=== PATIENT | male | born 1945 | race Caucasian/White ===

== ENCOUNTER 2018-08-24 09:06 | Day surgery (SDC) | payer MEDICARE ==
[2018-08-21 10:20] VITALS: BP 146/72
[2018-08-21 10:27] LABS: BASOPHILS % (AUTO) 0.8 % (0.0-5.0); EOSINOPHILS % (AUTO) 2.9 % (0.0-8.0); HEMATOCRIT 47.8 % (42-54); LYMPHOCYTES % (AUTO) 16.7 % (21.0-51.0); MEAN CORPUSCULAR HEMOGLOBIN 29.8 pg (27.0-33.0); MEAN CORPUSCULAR HGB CONC 33.5 g/dL (32.0-36.0); MEAN CORPUSCULAR VOLUME 89.1 fL (79-99); MONOCYTES % (AUTO) 7.6 % (3.0-13.0); NUCLEATED RED BLOOD CELLS 0.1 % (0.0-0.19); PLATELET COUNT (AUTO) 157 K/uL (130-400); RED BLOOD CELL COUNT(AUTO) 5.36 MIL/uL (4.50-6.20); RED CELL DISTRIBUTION WIDTH 14.6 % (11.0-15.5)
[2018-08-21 10:27] LABS: APPEARANCE,URINE Clear (CLEAR); BILIRUBIN,URINE Negative (NEGATIVE); COLOR,URINE Yellow (YELLOW); GLUCOSE, URINE (UA) Negative (NEGATIVE); KETONES,URINE Negative (NEGATIVE); LEUKOCYTE ESTERASE ,URINE Trace (NEGATIVE); NITRATE,URINE Negative (NEGATIVE); OCCULT BLOOD,URINE Negative (NEGATIVE); PROTEIN,URINE Negative (NEGATIVE); UROBILINOGEN,URINE 0.2 mg/dL (0.2-1.0)
[2018-08-21 10:40] LABS: BACTERIA,URINE None Seen /HPF (None Seen); RBC,URINE None Seen /HPF (0-1); SQUAMOUS EPITHELIAL CELL,UR Rare /HPF (0-2); WBC,URINE 0-1 /HPF (0-1)
[2018-08-21 10:52] LABS: INR 0.98 (0.85-1.15); PROTHROMBIN TIME 10.3 SEC (9.6-11.6)
[2018-08-21 10:58] LABS: CREATININE 0.9 mg/dL (0.5-1.5)
--- NOTE | 2018-08-21 12:13 | NUR ---
NOTE DR GOODWIN HAS REVIEWED EKG, NO FURTHER ORDERS GIVEN, OK TO PROCEED.
--- NOTE | 2018-08-23 10:00 | NUR ---
ABNORMAL LABS REPORTED AND FAXED ABNORMAL CHEST XRAY TO JOHAN FROM DR. MACE OFFICE. PER JOHAN RENAE WILL CALL BACK WITH ORDERS. PENDING CALL BACK FROM DR. RENAE.
--- NOTE | 2018-08-23 16:27 | NUR ---
ABNORMAL CHEST XRAY REPORTED ABNORMAL CHEST XRAY TO JOHAN FROM DR. MACE OFFICE. PENDING CALL BACK.
--- NOTE | 2018-08-23 16:31 | NUR ---
CHEST XRAY REPORTED CHEST XRAY TO DR. GOODWIN, ANESTHESIA SINCE NO CALL BACK FROM DR. RENAE. NO NEW ORDERS. OK TO PROCEED WITH PROCEDURE.
[2018-08-24] VITALS (18 sets, daily range): BP systolic 108–184; BP diastolic 61–110
[~2018-08-24] VITALS: Ht 175.3 cm; Wt 109.0 kg
[2018-08-24] MEDS: CEFTRIAXONE SODIUM 1 GM IVP SCH ×2 (05:00→11:15)
[~2018-08-24 09:06] MED LIST: AEC81 PO; GENTAMICIN 80 MG/NS 100 ML PB 100 ML IV SCH; HYDR-2132 PO; LISI-613 PO; METO100T14 PO; PRAV40TA3 PO; RIVA10TA PO; [UNRECOGNIZED DRUG - OTHER] PO
--- NOTE | 2018-08-24 09:32 | NUR ---
CONSULT: DR. GOODWIN NOTIFIED OF NPO STATUES 08/24/18 DRINKING 8 OUNCES OF WATER WITH MEDICATIONS. OK TO PROCEED WITH SURGERY.
[2018-08-24] MEDS ORDERED: LACTATED RINGERS 1000ML 1,000 ML IV ONE (09:38)
[2018-08-24] MEDS ORDERED: LACT1CAP78 PO (09:56)
[2018-08-24] MEDS ORDERED: CHRO1TAB7 PO (09:56)
[2018-08-24] MEDS ORDERED: TAMS0.4C32 PO (09:56)
--- NOTE | 2018-08-24 09:58 | NUR ---
VALUABLES: CLOTHING, MEDICATIONS, GLASSES, CELL PHONE WITH PHONE HEAD OF MUSIC AND WALLET GIVEN TO SPOUSE.
[2018-08-24] MEDS ORDERED: MIDAZOLAM HCL 1 MG/ML 2ML VIAL ONE (11:21)
[2018-08-24] MEDS ORDERED: PROPOFOL 10 MG/ML 20ML VIAL IV ONE ×2 (11:22→12:38)
[2018-08-24] MEDS ORDERED: LIDOCAINE PF 2% 5ML ABBOJECT ONE (11:22)
[2018-08-24] MEDS ORDERED: FENTANYL CITRATE PF 50 MCG/1 ML 2ML VIAL ONE (11:44)
[2018-08-24] MEDS ORDERED: GLYCOPYRROLATE 1 MG/5 ML SYRINGE ONE (12:19)
[2018-08-24] MEDS ORDERED: METHYLENE BLUE 10 MG/ML AMP ONE (12:32)
[2018-08-24] MEDS ORDERED: NEOSTIGMINE 5MG/5ML SYR IV ONE (12:50)
[2018-08-24] MEDS ORDERED: MORPHINE SULFATE 4 MG/1ML SYG ONE (13:27)
[2018-08-24] MEDS ORDERED: HYDRALAZINE HCL 20 MG/ML VIAL ONE (13:40)
[2018-08-24] MEDS ORDERED: OPIUM/BELLADONNA ALKALOIDS 1 EACH SUPP.RECT RC ONE (13:44)
--- NOTE | 2018-08-24 14:15 | NUR ---
IV WITH PINKISH AND SLIGHT SWELLING ,DISCONTINUED,WILL CONTINUE TO MONITOR ,NO COMPLAINS OF PAIN
--- NOTE | 2018-08-24 15:15 | NUR ---
INSTRUCTED ON [facility] CARE AND CHANGING TO LEG BAG,RETURNS DEMONSTRATION,, PER SPOUSE ,VERBALIZE UNDERSTANDING,,,,SUPPLIES GIVEN Addendum: 08/24/18 at 1713 by MARIA DE JESUS HERCULES LVN LVN If no urine output with in 6 hours ,blood clots ,report to ER OR CALL ,,,verbalize understanding
--- NOTE | 2018-08-24 15:15 | NUR ---
IRRIGATION WAS CLAMPED,700 ML OUTPUT FROM [facility]
--- NOTE | 2018-08-24 15:30 | NUR ---
NO PINK TO IV SITE,NO SWELLING
== END 2018-08-24 15:50 | disposition home or self-care (01) ==
LOC: DAH 09:06
PROVIDERS: ATTEND Urology
DX: N40.1 Benign prostatic hyperplasia with lower urinary tract symptoms (principal); N39.43 Post-void dribbling; I10 Essential (primary) hypertension; Z86.73 Personal history of transient ischemic attack (TIA), and cerebral infarction without residual deficits; E66.9 Obesity, unspecified; E78.5 Hyperlipidemia, unspecified; Z85.46 Personal history of malignant neoplasm of prostate; K21.9 Gastro-esophageal reflux disease without esophagitis; Z79.899 Other long term (current) drug therapy
CPT/HCPCS: 36415; 52648; 71045; 80048; 81001; 85025; 85610; 87088; 93005; 96365; A4218; A4354; A4358; A4600; C1758; C1769; J0360; J0696; J1580; J2001; J2250; J2270; J2704 ×2; J2710; J3010; J3490; J7030; J7120; Q9968

== ENCOUNTER 2019-06-07 01:08 | Day surgery (SDC) | payer MEDICARE ==
[2019-06-04 14:55] LABS: APPEARANCE,URINE Clear (CLEAR); BILIRUBIN,URINE Negative (NEGATIVE); COLOR,URINE Yellow (YELLOW); GLUCOSE, URINE (UA) Negative (NEGATIVE); KETONES,URINE Negative (NEGATIVE); LEUKOCYTE ESTERASE ,URINE Negative (NEGATIVE); NITRATE,URINE Negative (NEGATIVE); OCCULT BLOOD,URINE Small (NEGATIVE); PROTEIN,URINE Negative (NEGATIVE); UROBILINOGEN,URINE 0.2 mg/dL (0.2-1.0)
[2019-06-04 14:56] LABS: BASOPHILS % (AUTO) 0.6 % (0.0-5.0); EOSINOPHILS % (AUTO) 1.8 % (0.0-8.0); HEMATOCRIT 44.4 % (42-54); LYMPHOCYTES % (AUTO) 14.3 % (21.0-51.0); MEAN CORPUSCULAR HEMOGLOBIN 31.2 pg (27.0-33.0); MEAN CORPUSCULAR HGB CONC 33.6 g/dL (32.0-36.0); MEAN CORPUSCULAR VOLUME 92.8 fL (79-99); MONOCYTES % (AUTO) 5.1 % (3.0-13.0); NEUTROPHILS % (AUTO) 78.2 % (40.0-77.0); PLATELET COUNT (AUTO) 203 K/uL (130-400); RED BLOOD CELL COUNT(AUTO) 4.78 MIL/uL (4.50-6.20); RED CELL DISTRIBUTION WIDTH 13.8 % (11.0-15.5); WHITE BLOOD COUNT (AUTO) 8.7 K/uL (4.8-10.8)
[2019-06-04 14:57] VITALS: BP 146/66
[2019-06-04 15:03] LABS: BACTERIA,URINE Few /HPF (None Seen); MUCUS,URINE Moderate LPF (None Seen)
[2019-06-04 15:05] LABS: CREATININE 1.4 mg/dL (0.5-1.5)
[2019-06-04 15:07] LABS: INR 0.97 (0.85-1.15); PARTIAL THROMBOPLASTIN TIME 25.8 SEC (26.3-35.5); PROTHROMBIN TIME 10.2 SEC (9.6-11.6)
--- NOTE | 2019-06-04 15:18 | NUR ---
EKG INFORMED DR. GOODWIN OF ABNORMAL EKG. NO ORDERS RECEIVED. PROCEED WITH PLANNED PROCEDURE.
[~2019-06-07] VITALS: Ht 177.8 cm; Wt 104.3 kg
[2019-06-07] VITALS (18 sets, daily range): BP systolic 124–191; BP diastolic 69–107
[~2019-06-07 01:08] MED LIST changes: -AEC81 PO; +CEFTRIAXONE SODIUM 1 GM IVP SCH; -HYDR-2132 PO; -RIVA10TA PO; -[UNRECOGNIZED DRUG - OTHER] PO
[2019-06-07] MEDS ORDERED: LACTATED RINGERS 1000ML 1,000 ML IV ONE (13:43)
[2019-06-07] MEDS ORDERED: GENTAMICIN 80 MG/NS 100 ML PB 100 ML IV ONE (13:43)
[2019-06-07] MEDS ORDERED: MIDAZOLAM HCL 1 MG/ML 2ML VIAL ONE (13:57)
[2019-06-07] MEDS ORDERED: FENTANYL CITRATE PF 50 MCG/1 ML 5ML AMP IV ONE (13:57)
[2019-06-07] MEDS ORDERED: PROPOFOL 10 MG/ML 20ML VIAL IV ONE (13:57)
[2019-06-07] MEDS ORDERED: LIDOCAINE PF 2% 5ML ABBOJECT ONE (13:57)
[2019-06-07] MEDS: CEFTRIAXONE SODIUM 1 GM ONE ×2 (14:00→14:35)
[2019-06-07] MEDS ORDERED: EPHEDRINE SULFATE 50 MG/ML AMPULE ONE (14:44)
[2019-06-07] MEDS ORDERED: DEXAMETHASONE SOD PHOSPHATE 10MG/ML 1ML VIAL ONE (14:47)
[2019-06-07] MEDS ORDERED: ONDANSETRON HCL 4 MG/2 ML VIAL ONE (14:47)
[2019-06-07] MEDS ORDERED: METHYLENE BLUE 5 MG/ML AMP ONE (15:22)
[2019-06-07] MEDS ORDERED: HYDRALAZINE HCL 20 MG/ML VIAL ONE (16:26)
--- NOTE | 2019-06-07 18:05 | NUR ---
PT. LEFT VIA WHEELCHAIR IN PVT CAR, SCRIPT GIVEN TO WITH D/C INSTRUCTIONS. PER PT. AND NO [facility]ION LEG BAG APPLIED. MARION BAG IS PATENT, SECURE AND INTACT WITH PINK TINGE TO URINE. PT. LEFT WITHOUT COMPLICATION AND STABLE
== END 2019-06-07 18:05 | disposition home or self-care (01) ==
LOC: DAH 01:08
PROVIDERS: ATTEND Urology
DX: N40.1 Benign prostatic hyperplasia with lower urinary tract symptoms (principal); C61 Malignant neoplasm of prostate; N32.0 Bladder-neck obstruction; R31.0 Gross hematuria; I10 Essential (primary) hypertension; E78.5 Hyperlipidemia, unspecified; M19.90 Unspecified osteoarthritis, unspecified site; E66.01 Morbid (severe) obesity due to excess calories; Z86.73 Personal history of transient ischemic attack (TIA), and cerebral infarction without residual deficits; Z96.652 Presence of left artificial knee joint; Z98.890 Other specified postprocedural states
CPT/HCPCS: 36415; 52630; 71045; 80048; 81001; 85025; 85610; 85730; 87088; 88305; 93005; 96365; A4215 ×2; A4221; A4222 ×2; A4223 ×2; A4344; A4358; A4452; A4600 ×2; A4663 ×2; A6260; C1758; J0360; J0696; J1100; J1580; J2001; J2250; J2405; J2704; J3010; J3490; J7120 ×2; Q9968

== ENCOUNTER → 2019-06-25 | Outpatient (CLI) | payer MEDICARE ==
[~2019-06-25] MED LIST changes: -CEFTRIAXONE SODIUM 1 GM IVP SCH; -GENTAMICIN 80 MG/NS 100 ML PB 100 ML IV SCH; +IOHEXOL 350 MG/ML 100ML INFUS..BTL IV ONE
== END | disposition home or self-care (01) ==
LOC: RAH 08:07
PROVIDERS: ATTEND Urology
DX: C61 Malignant neoplasm of prostate (principal); N28.1 Cyst of kidney, acquired; K57.30 Diverticulosis of large intestine without perforation or abscess without bleeding
CPT/HCPCS: 74177; Q9967

== ENCOUNTER → 2019-06-29 | Outpatient (CLI) | payer MEDICARE ==
[~2019-06-29] MED LIST changes: -IOHEXOL 350 MG/ML 100ML INFUS..BTL IV ONE
== END | disposition home or self-care (01) ==
LOC: RAH 11:10
PROVIDERS: ATTEND Urology
DX: C61 Malignant neoplasm of prostate (principal); M19.90 Unspecified osteoarthritis, unspecified site
CPT/HCPCS: 78306; A9503

== ENCOUNTER → 2020-09-10 | Outpatient (CLI) | payer MEDICARE ==
[~2020-09-10] MED LIST changes: +IOHEXOL 350 MG/ML 100ML INFUS..BTL IV ONE; -LISI-613 PO; +LISI20TA24 PO
== END | disposition home or self-care (01) ==
LOC: RAH 08:20
PROVIDERS: ATTEND Urology
DX: N28.1 Cyst of kidney, acquired (principal); R31.0 Gross hematuria; Z90.79 Acquired absence of other genital organ(s)
CPT/HCPCS: 74178; Q9967

== ENCOUNTER 2020-09-24 04:36 | Inpatient (IN) | payer MEDICARE ==
[2020-09-24] VITALS (15 sets, daily range): BP systolic 104–141; BP diastolic 50–78
[~2020-09-24] VITALS: Ht 175.3 cm; Wt 101.6 kg
[~2020-09-24 04:36] MED LIST changes: -IOHEXOL 350 MG/ML 100ML INFUS..BTL IV ONE
[2020-09-24 05:08] LABS: BASOPHILS % (AUTO) 0.1 % (0.0-5.0); EOSINOPHILS % (AUTO) 0.5 % (0.0-8.0); HEMATOCRIT 45.6 % (42-54); LYMPHOCYTES % (AUTO) 4.7 % (21.0-51.0); MEAN CORPUSCULAR HEMOGLOBIN 29.7 pg (27.0-33.0); MEAN CORPUSCULAR HGB CONC 32.7 g/dL (32.0-36.0); NEUTROPHILS % (AUTO) 90.2 % (40.0-77.0); PLATELET COUNT (AUTO) 210 K/uL (130-400); RED BLOOD CELL COUNT(AUTO) 5.01 MIL/uL (4.50-6.20); RED CELL DISTRIBUTION WIDTH 13.5 % (11.0-15.5)
[2020-09-24 05:20] LABS: INR 0.97 (0.85-1.15); POTASSIUM 3.9 mmol/L (3.5-5.1); PROTHROMBIN TIME 10.6 SEC (9.6-11.6)
[2020-09-24 05:21] LABS: PARTIAL THROMBOPLASTIN TIME 24.2 SEC (26.3-35.5)
[2020-09-24 05:25] LABS: ALBUMIN 4.4 g/dL (3.5-5.0); BILIRUBIN,TOTAL 0.7 mg/dL (0.2-1.0); TOTAL PROTEIN, SERUM 7.9 g/dL (6.0-8.3)
[2020-09-24 05:49] LABS: APPEARANCE,URINE Clear (CLEAR); BILIRUBIN,URINE Negative (NEGATIVE); COLOR,URINE Yellow (YELLOW); GLUCOSE, URINE (UA) Negative (NEGATIVE); KETONES,URINE Negative (NEGATIVE); LEUKOCYTE ESTERASE ,URINE Trace (NEGATIVE); NITRATE,URINE Negative (NEGATIVE); OCCULT BLOOD,URINE Nonhemolyzed Trace (NEGATIVE); PROTEIN,URINE Trace mg/dL (NEGATIVE)
[2020-09-24 05:54] LABS: BACTERIA,URINE None Seen /HPF (None Seen); MUCUS,URINE Few LPF (None Seen); RBC,URINE 0-1 /HPF (0-1); SQUAMOUS EPITHELIAL CELL,UR Rare /HPF (0-2)
[2020-09-24] MEDS ORDERED: ASPIRIN 325 MG TABLET ONE (06:06)
[2020-09-24] MEDS ORDERED: ONDANSETRON 4MG INJ ONE ×2 (06:20→13:53)
[2020-09-24] MEDS ORDERED: MORPHINE 2 MG SYG ONE (06:20)
[2020-09-24] MEDS: DEXTROSE 5 % AND 0.9 % NACL 1,000 ML IV SCH ×2 (08:30→23:54)
[2020-09-24] MEDS ORDERED: MORPHINE 2 MG SYG IM PRN (08:30)
[2020-09-24 09:15] LABS: HEMOGLOBIN A1C 5.4 % (4.0-6.0)
[2020-09-24 09:33] LABS: THYROID STIMULATING HORMONE 0.37 uIU/mL (0.36-3.74)
[2020-09-24] MEDS ORDERED: METOPROLOL TARTRATE 50 MG TAB PO SCH ×2 (13:15→21:00)
[2020-09-24] MEDS: CEFTRIAXONE 1G VIAL IVP SCH (13:21)
[2020-09-24] MEDS ORDERED: LACTATED RINGERS 1000ML 1,000 ML IV ONE (13:28)
[2020-09-24] MEDS ORDERED: LIDOCAINE PF 100MG/5ML (2%) SYRINGE 5ML ONE (13:53)
[2020-09-24] MEDS ORDERED: DEXAMETHASONE SOD PHOSPHATE 10MG/ML 1ML VIAL ONE (13:53)
[2020-09-24] MEDS ORDERED: FENTANYL CITRATE PF 50 MCG/1 ML 2ML VIAL ONE (13:55)
[2020-09-24] MEDS ORDERED: ROCURONIUM 10MG/1ML SYR 10 MG/ML ML ONE (13:55)
[2020-09-24] MEDS ORDERED: MIDAZOLAM HCL 1 MG/ML 2ML VIAL ONE (13:55)
[2020-09-24] MEDS ORDERED: ROPIVACAINE 0.5% 5MG/ML 30ML IJ ONE (14:00)
[2020-09-24] MEDS ORDERED: NITROGLYCERIN 50MG/D5W 250ML 1 BOT ONE (14:00)
[2020-09-24] MEDS ORDERED: CEFAZOLIN SODIUM 1 GM VIAL ONE (14:10)
[2020-09-24] MEDS ORDERED: PHENYLEPHRINE HCL 10 MG/ML 1ML VIAL IV ONE ×2 (14:40→16:25)
[2020-09-24] MEDS ORDERED: NOREPINEPHRINE BITARTRATE 1 MG/1 ML ML IV ONE (14:40)
[2020-09-24] MEDS: CEFAZOLIN SODIUM 1 GM VIAL IVP SCH ×2 (14:50→15:30)
[2020-09-24 15:09] LABS: ABG BASE EXCESS 0.6 mmol/L (-2.0-3.0); ABG HCO3 26.4 mmol/L (21.0-28.0); ABG OXYGEN SATURATION 98.9 % (95.0-99.0); ABG PCO2 47 mmHg (35-48)
[2020-09-24] MEDS ORDERED: GLYCOPYRROLATE 1 MG/5 ML SYRINGE ONE (15:14)
[2020-09-24] MEDS ORDERED: NEOSTIGMINE 5MG/5ML SYR IV ONE (15:15)
[2020-09-24] MEDS ORDERED: LIDOCAINE HCL-MPF 1% 2ML VIAL IV PRN (15:30)
[2020-09-24] MEDS ORDERED: POTASSIUM CHLORIDE 10% ELIXIR 20 MEQ/15 ML UDCUP PO PRN (15:30)
[2020-09-24] MEDS ORDERED: DIPHENHYDRAMINE HCL 25 MG CAPSULE PO PRN (15:30)
[2020-09-24] MEDS ORDERED: TEMAZEPAM 15 MG CAPSULE PO PRN (15:30)
[2020-09-24] MEDS ORDERED: DiphenhydrAMINE HCL 50 MG/ML VIAL IVP PRN (15:30)
[2020-09-24] MEDS ORDERED: TRAMADOL HCL 50 MG TABLET PO PRN (15:30)
[2020-09-24] MEDS ORDERED: FERROUS FUMARATE 324 MG TABLET PO PRN (15:30)
[2020-09-24] MEDS ORDERED: CALCIUM CARB 500MG PO PRN (15:30)
[2020-09-24] MEDS ORDERED: OXYCODONE HCL 5 MG TAB PO PRN ×2 (15:30)
[2020-09-24] MEDS ORDERED: KCL 20 MEQ ERTAB PO PRN (15:30)
[2020-09-24] MEDS ORDERED: ONDANSETRON 4MG INJ IVP PRN (15:30)
[2020-09-24] MEDS: ACETAMINOPHEN 500 MG TABLET PO SCH ×2 (15:30→23:30)
[2020-09-24] MEDS ORDERED: KETOROLAC 15MG/ML VIAL (15MG/ML) IV PRN (15:30)
[2020-09-24] MEDS ORDERED: SODIUM BICARB 8.4% 50ML SYRINGE IVP ONE (16:25)
[2020-09-24] MEDS ORDERED: MAGNESIUM SULFATE 1 GM/2 ML VIAL IM ONE (16:25)
[2020-09-24] MEDS ORDERED: HEPARIN 10,000 UNIT/10ML (1,000 UNIT/ML) VIAL IV ONE (16:25)
[2020-09-24] MEDS ORDERED: AMINOCAPROIC ACID 5,000MG VIAL IV ONE (16:25)
[2020-09-24] MEDS ORDERED: ALBUMIN (HUMAN) 25% 50 ML IV ONE (16:25)
[2020-09-24] MEDS ORDERED: MANNITOL 25% 50ML VIAL IV ONE (16:25)
[2020-09-24] MEDS ORDERED: CACL 1GM SYG IVP ONE (16:25)
[2020-09-24] MEDS: 0.9%NACL 1000ML 1,000 ML IV SCH (17:14)
[2020-09-24] MEDS ORDERED: KETOROLAC 30MG VIAL (30MG/ML) IV PRN (18:15)
[2020-09-24] MEDS ORDERED: CALC-1125 PO (18:51)
[2020-09-24] MEDS ORDERED: ASCO500T20 PO (18:51)
[2020-09-24] MEDS ORDERED: FAMO40TA75 PO (18:51)
[2020-09-24] MEDS ORDERED: OMEP40CA21 PO (18:51)
[2020-09-24] MEDS ORDERED: METO100T14 PO (18:51)
[2020-09-24] MEDS ORDERED: BICALUTAMIDE PO (18:51)
[2020-09-24] MEDS ORDERED: MV-M1TAB20 PO (18:51)
[2020-09-24] MEDS ORDERED: ECHI400C18 PO (18:51)
[2020-09-24] MEDS ORDERED: PREGABALIN 25 MG CAP PO SCH (21:00)
[2020-09-24] MEDS ORDERED: ASPIRIN 81MG CHEW TAB PO SCH (21:00)
[2020-09-24] MEDS: FAMOTIDINE 20MG TAB PO SCH (21:54)
[2020-09-24] MEDS: ATORVASTATIN 40 MG TABLET PO SCH (21:55)
[2020-09-24] MEDS ORDERED: CEFAZOLIN SODIUM 1 GM VIAL IVP SCH (22:10)
[2020-09-24] MEDS: MORPHINE 2 MG SYG IVP PRN (23:33)
[2020-09-25] VITALS (21 sets, daily range): BP systolic 100–141; BP diastolic 45–94
[2020-09-25] MEDS: 0.9%NACL 1000ML 1,000 ML IV SCH ×2 (01:30→11:30)
[2020-09-25] MEDS ORDERED: MAGNESIUM 2GM PREMIX 50ML 50 ML IV ONE (02:51)
[2020-09-25 03:29] LABS: HEMATOCRIT 38.3 % (42-54); MEAN CORPUSCULAR HGB CONC 33.7 g/dL (32.0-36.0); MEAN CORPUSCULAR VOLUME 89.1 fL (79-99); RED BLOOD CELL COUNT(AUTO) 4.3 MIL/uL (4.50-6.20); RED CELL DISTRIBUTION WIDTH 13.6 % (11.0-15.5); WHITE BLOOD COUNT (AUTO) 10.6 K/uL (4.8-10.8)
[2020-09-25 03:54] LABS: CREATININE 1.1 mg/dL (0.5-1.5); POTASSIUM 3.9 mmol/L (3.5-5.1)
[2020-09-25] MEDS: MORPHINE 2 MG SYG IVP PRN (04:45)
[2020-09-25] MEDS ORDERED: CEFAZOLIN SODIUM 1 GM VIAL ONE (05:58)
[2020-09-25] MEDS ORDERED: NITROGLYCERIN 0.4 MG SL TAB SL PRN (07:30)
[2020-09-25] MEDS: ACETAMINOPHEN 500 MG TABLET PO SCH ×3 (07:30→23:26)
[2020-09-25] MEDS ORDERED: METOPROLOL TARTRATE 1 MG/ML 5ML VIAL IV ONE ×3 (08:29→10:42)
[2020-09-25] MEDS ORDERED: METOPROLOL TARTRATE 1 MG/ML 5ML VIAL IV SCH (08:30)
[2020-09-25] MEDS: FAMOTIDINE 20MG TAB PO SCH ×2 (08:32→21:34)
[2020-09-25] MEDS ORDERED: CLOPIDOGREL 300MG TAB PO SCH (09:00)
[2020-09-25] MEDS ORDERED: METOPROLOL TARTRATE 50 MG TAB PO SCH (09:00)
[2020-09-25] MEDS ORDERED: LISINOPRIL 10 MG TABLET PO SCH (09:00)
[2020-09-25] MEDS: BICALUTAMIDE 50 MG PO SCH (09:00)
[2020-09-25] MEDS: TAMSULOSIN HCL 0.4 MG CAP.ER.24H PO SCH (09:00)
[2020-09-25] MEDS: LISINOPRIL 20 MG TABLET PO SCH (09:00)
[2020-09-25] MEDS: CALCIUM CARB 500MG CHEW TAB PO SCH ×2 (09:00→21:35)
[2020-09-25] MEDS: POLYETHYLENE GLYCOL 3350 17 GM POWD.PACK PO SCH (09:00)
[2020-09-25] MEDS ORDERED: ASPIRIN 81MG CHEW TAB PO SCH (09:00)
[2020-09-25] MEDS: ASCORBIC ACID 500 MG TAB PO SCH ×2 (09:00→21:35)
[2020-09-25] MEDS ORDERED: BIVALIRUDIN 250 MG/VIAL IV ONE (09:38)
[2020-09-25] MEDS ORDERED: IOHEXOL 350 MG/ML 100ML INFUS..BTL IV ONE (09:38)
[2020-09-25] MEDS ORDERED: NITROGLYCERIN 2 MG VIAL IV ONE (09:38)
[2020-09-25] MEDS ORDERED: IOHEXOL-350 50ML VIAL IV ONE (09:38)
[2020-09-25] MEDS ORDERED: LIDOCAINE HCL 400MG/20ML VIAL ONE (09:39)
[2020-09-25] MEDS: ASPIRIN 81MG CHEW TAB PO SCH (09:40)
[2020-09-25] MEDS: CEFTRIAXONE 1G VIAL IVP SCH (09:40)
[2020-09-25] MEDS ORDERED: MIDAZOLAM HCL 1 MG/ML 2ML VIAL ONE (10:04)
[2020-09-25] MEDS ORDERED: FENTANYL CITRATE PF 50 MCG/1 ML 2ML VIAL ONE (10:04)
[2020-09-25] MEDS ORDERED: HEPARIN 10,000 UNIT/10ML (1,000 UNIT/ML) VIAL ONE (10:38)
[2020-09-25] MEDS ORDERED: HEPARIN 25,000 UNITS/250ML D5W 250 ML IV ONE (11:37)
[2020-09-25] MEDS ORDERED: HEPARIN 25,000 UNITS/250ML D5W 250 ML IV SCH (11:45)
[2020-09-25] MEDS: PSYLLIUM SEED 1 EACH PACKET PO SCH (12:00)
[2020-09-25] MEDS: DEXTROSE 5 % AND 0.9 % NACL 1,000 ML IV SCH (13:51)
[2020-09-25 15:53] LABS: HEMATOCRIT 39.1 % (42-54); MEAN CORPUSCULAR HEMOGLOBIN 29.6 pg (27.0-33.0); MEAN CORPUSCULAR VOLUME 89.7 fL (79-99); RED BLOOD CELL COUNT(AUTO) 4.36 MIL/uL (4.50-6.20); RED CELL DISTRIBUTION WIDTH 13.6 % (11.0-15.5); WHITE BLOOD COUNT (AUTO) 11.9 K/uL (4.8-10.8)
[2020-09-25 16:08] LABS: ALBUMIN 3.3 g/dL (3.5-5.0); CREATININE 1.1 mg/dL (0.5-1.5); POTASSIUM 4.3 mmol/L (3.5-5.1); TOTAL PROTEIN, SERUM 6.6 g/dL (6.0-8.3)
[2020-09-25 16:42] LABS: INR 1.1 (0.85-1.15); PROTHROMBIN TIME 11.9 SEC (9.6-11.6)
[2020-09-25 16:59] LABS: PARTIAL THROMBOPLASTIN TIME 120.6 SEC (26.3-35.5)
[2020-09-25] MEDS ORDERED: NON-FORMULARY MEDICATION 1 EACH (Pravastatin Sodium 80 MG) PO SCH (21:00)
[2020-09-25] MEDS: ATORVASTATIN 40 MG TABLET PO SCH (21:35)
[2020-09-25] MEDS: METOPROLOL TARTRATE 50 MG TAB PO SCH (21:35)
[2020-09-25 23:22] LABS: INR 1.06 (0.85-1.15); PROTHROMBIN TIME 11.5 SEC (9.6-11.6)
[2020-09-25 23:24] LABS: PARTIAL THROMBOPLASTIN TIME 65.1 SEC (26.3-35.5)
[2020-09-26] VITALS (30 sets, daily range): BP systolic 91–164; BP diastolic 41–99
[2020-09-26] MEDS: ACETAMINOPHEN 500 MG TABLET PO SCH (04:45)
[2020-09-26] MEDS: DEXTROSE 5 % AND 0.9 % NACL 1,000 ML IV SCH (04:46)
[2020-09-26 05:30] LABS: BASOPHILS % (AUTO) 0.4 % (0.0-5.0); EOSINOPHILS % (AUTO) 3.9 % (0.0-8.0); HEMATOCRIT 35.7 % (42-54); MEAN CORPUSCULAR HEMOGLOBIN 30.1 pg (27.0-33.0); MEAN CORPUSCULAR HGB CONC 33.3 g/dL (32.0-36.0); MEAN CORPUSCULAR VOLUME 90.2 fL (79-99); MONOCYTES % (AUTO) 7.7 % (3.0-13.0); NEUTROPHILS % (AUTO) 81.7 % (40.0-77.0); PLATELET COUNT (AUTO) 158 K/uL (130-400); RED BLOOD CELL COUNT(AUTO) 3.96 MIL/uL (4.50-6.20); RED CELL DISTRIBUTION WIDTH 13.7 % (11.0-15.5)
[2020-09-26 05:46] LABS: INR 1.08 (0.85-1.15); PROTHROMBIN TIME 11.7 SEC (9.6-11.6)
[2020-09-26 05:48] LABS: PARTIAL THROMBOPLASTIN TIME 58.9 SEC (26.3-35.5)
[2020-09-26 05:49] LABS: ALBUMIN 3.1 g/dL (3.5-5.0); BILIRUBIN,TOTAL 1.1 mg/dL (0.2-1.0); POTASSIUM 3.8 mmol/L (3.5-5.1); TOTAL PROTEIN, SERUM 6.4 g/dL (6.0-8.3)
[2020-09-26] MEDS ORDERED: NITROGLYCERIN 50MG/D5W 250ML 1 BOT ONE (08:05)
[2020-09-26] MEDS ORDERED: SODIUM BICARB 50MEQ 50ML VIAL 150 ML ONE ×2 (08:06→11:06)
[2020-09-26] MEDS ORDERED: ESMOLOL HCL 10 MG/ML 10 ML VIAL ONE (08:06)
[2020-09-26] MEDS ORDERED: EPINEPHRINE PF 1MG AMP ONE (08:06)
[2020-09-26] MEDS ORDERED: AMINOCAPROIC ACID 5,000MG VIAL ONE (08:06)
[2020-09-26] MEDS ORDERED: LIDOCAINE PF 100MG/5ML (2%) SYRINGE 5ML ONE (08:06)
[2020-09-26] MEDS ORDERED: HEPARIN 10,000 UNIT/10ML (1,000 UNIT/ML) VIAL ONE ×2 (08:06→09:55)
[2020-09-26] MEDS ORDERED: NOREPINEPHRINE BITARTRATE 1 MG/1 ML ML IV ONE (08:06)
[2020-09-26] MEDS ORDERED: PROPOFOL 10 MG/ML 20ML VIAL IV ONE (08:06)
[2020-09-26] MEDS ORDERED: PROTAMINE SULFATE 10 MG/ML 25ML VIAL IV ONE (08:06)
[2020-09-26] MEDS ORDERED: ROCURONIUM 10MG/1ML SYR 10 MG/ML ML ONE ×2 (08:07→10:57)
[2020-09-26] MEDS ORDERED: MIDAZOLAM HCL 1 MG/ML 2ML VIAL ONE (08:07)
[2020-09-26] MEDS ORDERED: FENTANYL CITRATE PF 50 MCG/1 ML 20ML VIAL IJ ONE (08:07)
[2020-09-26] MEDS ORDERED: KETAMINE HCL 100 MG/ML 5ML VIAL IJ ONE (08:10)
[2020-09-26] MEDS: ASPIRIN 81MG CHEW TAB PO SCH (08:11)
[2020-09-26] MEDS: CEFTRIAXONE 1G VIAL IVP SCH (08:11)
[2020-09-26] MEDS: METOPROLOL TARTRATE 50 MG TAB PO SCH (08:12)
[2020-09-26] MEDS: BICALUTAMIDE 50 MG PO SCH (08:12)
[2020-09-26] MEDS: POLYETHYLENE GLYCOL 3350 17 GM POWD.PACK PO SCH (08:12)
[2020-09-26] MEDS: ASCORBIC ACID 500 MG TAB PO SCH ×2 (08:12→19:39)
[2020-09-26] MEDS: FAMOTIDINE 20MG TAB PO SCH (08:12)
[2020-09-26] MEDS: LISINOPRIL 20 MG TABLET PO SCH (08:12)
[2020-09-26] MEDS: CALCIUM CARB 500MG CHEW TAB PO SCH ×2 (08:12→19:38)
[2020-09-26] MEDS: TAMSULOSIN HCL 0.4 MG CAP.ER.24H PO SCH (08:12)
[2020-09-26] MEDS ORDERED: NOREPINEPHRINE BITARTRATE 8 MG in DEXTROSE 5%-WATER 250 ML IV PRN (08:15)
[2020-09-26] MEDS ORDERED: EPINEPHRINE PF 1MG AMP 10 MG in 0.9% NACL 250ML 240 ML IV PRN (08:15)
[2020-09-26] MEDS ORDERED: CEFAZOLIN SODIUM 1 GM VIAL ONE (08:15)
[2020-09-26] MEDS ORDERED: AMINOCAPROIC ACID 5,000MG VIAL 15,000 MG in 0.9% NACL 500ML IV.SOLN 420 ML IV PRN (08:15)
[2020-09-26] MEDS ORDERED: OCTYL 2-CYANOACRYLATE 1 EACH TP ONE (08:16)
[2020-09-26] MEDS ORDERED: PAPAVERINE HCL 30 MG/ML 2ML VIAL ONE (08:16)
[2020-09-26] MEDS ORDERED: CLOPIDOGREL 75MG TAB PO SCH (09:00)
[2020-09-26] MEDS ORDERED: HEPARIN 10,000 UNIT VIAL IJ ONE (09:13)
[2020-09-26] MEDS ORDERED: ALBUMIN (HUMAN) 5% 250 ML IV PRN (09:15)
[2020-09-26] MEDS ORDERED: TRAMADOL HCL 50 MG TABLET PO PRN ×2 (09:15)
[2020-09-26] MEDS ORDERED: ACETAMINOPHEN 650 MG SUPPOSITORY RC PRN (09:15)
[2020-09-26] MEDS ORDERED: 0.9% NACL 500ML IV.SOLN 500 ML IV SCH (09:15)
[2020-09-26] MEDS ORDERED: MAGNESIUM 2GM PREMIX 50ML 50 ML IV PRN (09:15)
[2020-09-26] MEDS ORDERED: AMINOCAPROIC ACID 5,000MG VIAL 15,000 MG in 0.9% NACL 250ML 250 ML IV SCH (09:15)
[2020-09-26] MEDS ORDERED: POTASSIUM PHOS 15 mMOL+NS250ML 250 ML IV PRN (09:15)
[2020-09-26] MEDS ORDERED: 0.9%NACL 1000ML 1,000 ML IV SCH (09:15)
[2020-09-26] MEDS ORDERED: NITROGLYCERIN 50MG/D5W 250ML 250 BOT IV SCH (09:15)
[2020-09-26] MEDS ORDERED: DEXTROSE 50%-WATER 50 ML DISP.SYRIN IV PRN (09:15)
[2020-09-26] MEDS ORDERED: 0.9%NACL 10ML VIAL IVP PRN (09:15)
[2020-09-26] MEDS ORDERED: MORPHINE 2 MG SYG IV PRN (09:15)
[2020-09-26] MEDS ORDERED: GLUCAGON 1MG KIT 1 MG ML IM PRN (09:15)
[2020-09-26] MEDS ORDERED: NOREPINEPHRIN 4MG/NS 250ML 250 ML IV PRN (09:15)
[2020-09-26] MEDS ORDERED: ONDANSETRON 4MG INJ IV PRN (09:15)
[2020-09-26 09:26] LABS: ABG BASE EXCESS 2.2 mmol/L (-2.0-3.0); ABG HCO3 25.9 mmol/L (21.0-28.0); ABG OXYGEN SATURATION 98.8 % (95.0-99.0); ABG PCO2 37 mmHg (35-48)
[2020-09-26] MEDS ORDERED: POTASSIUM CHLORIDE 20MEQ/100ML 100 ML IV ONE (09:29)
[2020-09-26] MEDS ORDERED: AMIODARONE 150MG VIAL ONE (09:46)
[2020-09-26 10:38] LABS: ABG BASE EXCESS -8.5 mmol/L (-2.0-3.0); ABG HCO3 17.5 mmol/L (21.0-28.0); ABG OXYGEN SATURATION 98.5 % (95.0-99.0); ABG PCO2 38 mmHg (35-48)
[2020-09-26 11:04] LABS: ABG BASE EXCESS -3.5 mmol/L (-2.0-3.0); ABG OXYGEN SATURATION 98.4 % (95.0-99.0); ABG PCO2 42 mmHg (35-48)
[2020-09-26] MEDS: PSYLLIUM SEED 1 EACH PACKET PO SCH (11:12)
[2020-09-26 11:31] LABS: ABG BASE EXCESS 3.8 mmol/L (-2.0-3.0); ABG HCO3 29.2 mmol/L (21.0-28.0); ABG OXYGEN SATURATION 98.4 % (95.0-99.0); ABG PCO2 48 mmHg (35-48)
[2020-09-26] MEDS ORDERED: MIDAZOLAM HCL 1 MG/ML 5ML VIAL ONE (11:31)
[2020-09-26 12:06] LABS: ABG BASE EXCESS -8.8 mmol/L (-2.0-3.0); ABG HCO3 17.8 mmol/L (21.0-28.0); ABG OXYGEN SATURATION 96.7 % (95.0-99.0); ABG PCO2 41 mmHg (35-48)
[2020-09-26] MEDS ORDERED: SODIUM BICARB 50MEQ 50ML VIAL 100 ML ONE (12:22)
[2020-09-26 12:53] LABS: HEMATOCRIT 34.9 % (42-54); MEAN CORPUSCULAR HEMOGLOBIN 29.4 pg (27.0-33.0); MEAN CORPUSCULAR HGB CONC 32.4 g/dL (32.0-36.0); MEAN CORPUSCULAR VOLUME 90.9 fL (79-99); RED BLOOD CELL COUNT(AUTO) 3.84 MIL/uL (4.50-6.20); RED CELL DISTRIBUTION WIDTH 14.6 % (11.0-15.5); WHITE BLOOD COUNT (AUTO) 23.8 K/uL (4.8-10.8)
[2020-09-26 13:08] LABS: ABG BASE EXCESS -5.7 mmol/L (-2.0-3.0); ABG HCO3 19.8 mmol/L (21.0-28.0); ABG OXYGEN SATURATION 97.3 % (95.0-99.0); ABG PCO2 39 mmHg (35-48)
[2020-09-26 13:10] LABS: ABG BASE EXCESS -5.6 mmol/L (-2.0-3.0); ABG HCO3 19.7 mmol/L (21.0-28.0); ABG OXYGEN SATURATION 97.4 % (95.0-99.0); ABG PCO2 38 mmHg (35-48)
[2020-09-26 13:13] LABS: CREATININE 1.4 mg/dL (0.5-1.5); MAGNESIUM 2.7 mg/dL (1.80-2.40); PHOSPHORUS 4.5 mg/dL (2.5-4.9)
[2020-09-26] MEDS: POTASSIUM CHLORIDE 20MEQ/100ML 100 ML IV PRN ×9 (13:15→23:48)
[2020-09-26] MEDS: PROPOFOL 1000 MG/100 ML 100 ML IV PRN (13:19)
[2020-09-26] MEDS ORDERED: CEFAZOLIN SODIUM 1 GM VIAL IV SCH (14:15)
[2020-09-26 14:25] LABS: ABG HCO3 20.4 mmol/L (21.0-28.0); ABG PCO2 35 mmHg (35-48)
[2020-09-26] MEDS: SODIUM BICARB 50MEQ 50ML VIAL IV PRN ×2 (14:45→16:53)
[2020-09-26 14:51] LABS: INR 1.14 (0.85-1.15); PARTIAL THROMBOPLASTIN TIME 21.4 SEC (26.3-35.5); PROTHROMBIN TIME 11.8 SEC (9.6-11.6)
[2020-09-26] MEDS: INSULIN REGULAR, HUMAN 3ML 100 UNIT in 0.9%NACL 100ML 99 ML IV SCH ×4 (15:22→21:04)
[2020-09-26] MEDS ORDERED: FAMOTIDINE 20MG TAB ONE (15:24)
[2020-09-26 15:27] LABS: ALBUMIN 2.6 g/dL (3.5-5.0); BILIRUBIN,DIRECT 0.5 mg/dL (0.0-0.3); TOTAL PROTEIN, SERUM 5.2 g/dL (6.0-8.3)
[2020-09-26] MEDS ORDERED: BISACODYL 5 MG TABLET.DR PO PRN (15:30)
[2020-09-26] MEDS ORDERED: NOREPINEPHRIN 8MG/250ML NS PMX 250 ML IV ONE ×2 (15:59→19:45)
[2020-09-26] MEDS ORDERED: PHARMACY COMMUNICATION MISC SCH (16:15)
[2020-09-26 16:38] LABS: ABG BASE EXCESS -7.1 mmol/L (-2.0-3.0); ABG HCO3 15.4 mmol/L (21.0-28.0); ABG OXYGEN SATURATION 97.2 % (95.0-99.0); ABG PCO2 24 mmHg (35-48)
[2020-09-26] MEDS: MORPHINE 4 MG SYG IV PRN (16:39)
[2020-09-26] MEDS: CEFAZOLIN SODIUM 1 GM VIAL IV SCH (16:46)
[2020-09-26 17:46] LABS: ABG BASE EXCESS -0.6 mmol/L (-2.0-3.0); ABG HCO3 22.2 mmol/L (21.0-28.0); ABG OXYGEN SATURATION 97.5 % (95.0-99.0); ABG PCO2 31 mmHg (35-48)
[2020-09-26 17:48] LABS: ABG BASE EXCESS -0.5 mmol/L (-2.0-3.0); ABG HCO3 21.9 mmol/L (21.0-28.0); ABG OXYGEN SATURATION 97.9 % (95.0-99.0); ABG PCO2 30 mmHg (35-48)
[2020-09-26 17:52] LABS: ABG BASE EXCESS -0.9 mmol/L (-2.0-3.0); ABG HCO3 21.5 mmol/L (21.0-28.0); ABG PCO2 29 mmHg (35-48)
[2020-09-26 19:33] LABS: ABG BASE EXCESS 1.1 mmol/L (-2.0-3.0); ABG HCO3 23.6 mmol/L (21.0-28.0); ABG OXYGEN SATURATION 97.6 % (95.0-99.0); ABG PCO2 32 mmHg (35-48)
[2020-09-26] MEDS: ATORVASTATIN 40 MG TABLET PO SCH (19:38)
[2020-09-26] MEDS: CALCIUM GLUC 1GM 1 GM in 0.9%NACL 50ML 50 ML IV PRN (20:28)
[2020-09-26] MEDS: FAMOTIDINE 20MG VIAL IV SCH (20:28)
[2020-09-26 20:57] LABS: ABG BASE EXCESS 4.8 mmol/L (-2.0-3.0); ABG HCO3 27.4 mmol/L (21.0-28.0); ABG OXYGEN SATURATION 97.9 % (95.0-99.0); ABG PCO2 34 mmHg (35-48)
[2020-09-26 21:59] LABS: ABG BASE EXCESS 6.6 mmol/L (-2.0-3.0); ABG OXYGEN SATURATION 98.1 % (95.0-99.0); ABG PCO2 34 mmHg (35-48)
[2020-09-26 22:01] LABS: ABG BASE EXCESS 5.6 mmol/L (-2.0-3.0); ABG HCO3 27.9 mmol/L (21.0-28.0); ABG OXYGEN SATURATION 98.1 % (95.0-99.0); ABG PCO2 33 mmHg (35-48)
[2020-09-26 22:05] LABS: ABG BASE EXCESS 3.8 mmol/L (-2.0-3.0); ABG HCO3 25.8 mmol/L (21.0-28.0); ABG OXYGEN SATURATION 98.3 % (95.0-99.0); ABG PCO2 31 mmHg (35-48)
[2020-09-26 23:30] LABS: ABG BASE EXCESS 6.7 mmol/L (-2.0-3.0); ABG HCO3 29.1 mmol/L (21.0-28.0); ABG OXYGEN SATURATION 97.2 % (95.0-99.0); ABG PCO2 34 mmHg (35-48)
[2020-09-27] VITALS (49 sets, daily range): BP systolic 91–187; BP diastolic 46–181
[2020-09-27] MEDS: PROPOFOL 1000 MG/100 ML 100 ML IV PRN (00:05)
[2020-09-27] MEDS: MORPHINE 4 MG SYG IV PRN (00:06)
[2020-09-27] MEDS: CEFAZOLIN SODIUM 1 GM VIAL IV SCH ×2 (00:07→08:03)
[2020-09-27 00:18] LABS: ABG BASE EXCESS 6.6 mmol/L (-2.0-3.0); ABG HCO3 28.8 mmol/L (21.0-28.0); ABG OXYGEN SATURATION 97.2 % (95.0-99.0); ABG PCO2 33 mmHg (35-48)
[2020-09-27 01:03] LABS: ABG BASE EXCESS 6.1 mmol/L (-2.0-3.0); ABG HCO3 27.9 mmol/L (21.0-28.0); ABG OXYGEN SATURATION 97.2 % (95.0-99.0); ABG PCO2 32 mmHg (35-48)
[2020-09-27] MEDS: CALCIUM GLUC 1GM 1 GM in 0.9%NACL 50ML 50 ML IV PRN ×2 (01:06→15:12)
[2020-09-27] MEDS: POTASSIUM CHLORIDE 20MEQ/100ML 100 ML IV PRN ×3 (01:07→05:16)
[2020-09-27 02:15] LABS: ABG BASE EXCESS 5.7 mmol/L (-2.0-3.0); ABG HCO3 27.1 mmol/L (21.0-28.0); ABG OXYGEN SATURATION 97.2 % (95.0-99.0); ABG PCO2 30 mmHg (35-48)
[2020-09-27 03:25] LABS: ABG HCO3 29.7 mmol/L (21.0-28.0); ABG OXYGEN SATURATION 97.6 % (95.0-99.0); ABG PCO2 32 mmHg (35-48)
[2020-09-27 03:30] LABS: ABG BASE EXCESS 6.5 mmol/L (-2.0-3.0); ABG OXYGEN SATURATION 97.8 % (95.0-99.0); ABG PCO2 30 mmHg (35-48)
[2020-09-27 05:00] LABS: ABG BASE EXCESS 8.6 mmol/L (-2.0-3.0); ABG HCO3 30.4 mmol/L (21.0-28.0); ABG OXYGEN SATURATION 96.9 % (95.0-99.0); ABG PCO2 33 mmHg (35-48)
[2020-09-27] MEDS: MORPHINE 2 MG SYG IVP PRN (05:22)
[2020-09-27] MEDS: EPINEPHRINE PF 1MG AMP 10 MG in DEXTROSE 5%-WATER 250 ML IV PRN ×2 (05:24→19:30)
[2020-09-27 05:55] LABS: MEAN CORPUSCULAR HEMOGLOBIN 29.5 pg (27.0-33.0); MEAN CORPUSCULAR HGB CONC 33.4 g/dL (32.0-36.0); MEAN CORPUSCULAR VOLUME 88.4 fL (79-99); NUCLEATED RED BLOOD CELLS 0.9 % (0.0-0.19); RED BLOOD CELL COUNT(AUTO) 3.96 MIL/uL (4.50-6.20); RED CELL DISTRIBUTION WIDTH 14.7 % (11.0-15.5); WHITE BLOOD COUNT (AUTO) 17.6 K/uL (4.8-10.8)
[2020-09-27 06:11] LABS: INR 1.12 (0.85-1.15); PROTHROMBIN TIME 12.1 SEC (9.6-11.6)
[2020-09-27 06:13] LABS: PARTIAL THROMBOPLASTIN TIME 21.3 SEC (26.3-35.5)
[2020-09-27 06:20] LABS: CREATININE 1.2 mg/dL (0.5-1.5); MAGNESIUM 1.8 mg/dL (1.80-2.40); PHOSPHORUS 0.8 mg/dL (2.5-4.9)
[2020-09-27] MEDS: ASPIRIN 325MG EC TAB PO SCH (08:03)
[2020-09-27] MEDS: TAMSULOSIN HCL 0.4 MG CAP.ER.24H PO SCH (08:03)
[2020-09-27] MEDS: ASCORBIC ACID 500 MG TAB PO SCH ×2 (08:03→21:00)
[2020-09-27] MEDS: CALCIUM CARB 500MG CHEW TAB PO SCH ×2 (08:03→21:00)
[2020-09-27] MEDS: FUROSEMIDE 20MG VIAL IV SCH ×2 (08:03→21:08)
[2020-09-27] MEDS: FAMOTIDINE 20MG VIAL IV SCH ×2 (08:03→21:08)
[2020-09-27] MEDS: POLYETHYLENE GLYCOL 3350 17 GM POWD.PACK PO SCH (08:05)
[2020-09-27] MEDS: BICALUTAMIDE 50 MG PO SCH (08:06)
[2020-09-27 08:40] LABS: ABG BASE EXCESS 5.5 mmol/L (-2.0-3.0); ABG HCO3 27.7 mmol/L (21.0-28.0); ABG OXYGEN SATURATION 96.9 % (95.0-99.0); ABG PCO2 33 mmHg (35-48)
[2020-09-27 09:30] LABS: ABG BASE EXCESS 7.1 mmol/L (-2.0-3.0); ABG HCO3 30.2 mmol/L (21.0-28.0); ABG OXYGEN SATURATION 96.6 % (95.0-99.0); ABG PCO2 37 mmHg (35-48)
[2020-09-27] MEDS: PSYLLIUM SEED 1 EACH PACKET PO SCH (12:00)
[2020-09-27 13:42] LABS: ABG HCO3 29.8 mmol/L (21.0-28.0); ABG OXYGEN SATURATION 89.4 % (95.0-99.0); ABG PCO2 36 mmHg (35-48)
[2020-09-27] MEDS ORDERED: FUROSEMIDE 20MG VIAL IV SCH ×2 (14:15→16:45)
[2020-09-27] MEDS ORDERED: BISACODYL 10 MG SUPP.RECT RC PRN (15:30)
[2020-09-27 16:33] LABS: ABG HCO3 32.3 mmol/L (21.0-28.0); ABG OXYGEN SATURATION 96.9 % (95.0-99.0); ABG PCO2 39 mmHg (35-48)
[2020-09-27 18:14] LABS: CREATININE 1.3 mg/dL (0.5-1.5); MAGNESIUM 2.3 mg/dL (1.80-2.40); PHOSPHORUS 3.7 mg/dL (2.5-4.9); POTASSIUM 4.2 mmol/L (3.5-5.1)
[2020-09-27] MEDS: INSULIN REGULAR, HUMAN 3ML 100 UNIT in 0.9%NACL 100ML 99 ML IV SCH ×2 (19:32)
[2020-09-27] MEDS: ACETAMINOPHEN 325 MG TAB PO PRN (21:09)
[2020-09-27] MEDS: ATORVASTATIN 40 MG TABLET PO SCH (21:15)
[2020-09-28] VITALS (24 sets, daily range): BP systolic 117–167; BP diastolic 48–63
[2020-09-28 03:53] LABS: ABG BASE EXCESS 8.3 mmol/L (-2.0-3.0); ABG HCO3 32.6 mmol/L (21.0-28.0); ABG OXYGEN SATURATION 97.9 % (95.0-99.0); ABG PCO2 44 mmHg (35-48)
[2020-09-28 04:30] LABS: HEMATOCRIT 32.4 % (42-54); MEAN CORPUSCULAR HEMOGLOBIN 29.3 pg (27.0-33.0); MEAN CORPUSCULAR HGB CONC 31.8 g/dL (32.0-36.0); NUCLEATED RED BLOOD CELLS 0.4 % (0.0-0.19); RED BLOOD CELL COUNT(AUTO) 3.52 MIL/uL (4.50-6.20); RED CELL DISTRIBUTION WIDTH 15.9 % (11.0-15.5); WHITE BLOOD COUNT (AUTO) 22.9 K/uL (4.8-10.8)
[2020-09-28 04:47] LABS: CREATININE 1.2 mg/dL (0.5-1.5); MAGNESIUM 2.2 mg/dL (1.80-2.40); PHOSPHORUS 3.7 mg/dL (2.5-4.9); POTASSIUM 3.9 mmol/L (3.5-5.1)
[2020-09-28] MEDS: POTASSIUM CHLORIDE 20MEQ/100ML 100 ML IV PRN (05:08)
[2020-09-28] MEDS: METOPROLOL TARTRATE 25 MG TAB PO SCH ×2 (08:51→21:00)
[2020-09-28] MEDS: BICALUTAMIDE 50 MG PO SCH (09:00)
[2020-09-28] MEDS: TAMSULOSIN HCL 0.4 MG CAP.ER.24H PO SCH (09:00)
[2020-09-28] MEDS: CALCIUM CARB 500MG CHEW TAB PO SCH ×2 (09:00→21:00)
[2020-09-28] MEDS: ASPIRIN 325MG EC TAB PO SCH (09:00)
[2020-09-28] MEDS: FAMOTIDINE 20MG VIAL IV SCH ×2 (09:00→22:21)
[2020-09-28] MEDS: POLYETHYLENE GLYCOL 3350 17 GM POWD.PACK PO SCH (09:01)
[2020-09-28] MEDS: ASCORBIC ACID 500 MG TAB PO SCH ×2 (09:01→22:21)
[2020-09-28] MEDS: INSULIN HUMULIN R 100 UNIT/ML 3ML SQ SCH ×3 (11:30→21:00)
[2020-09-28] MEDS: PSYLLIUM SEED 1 EACH PACKET PO SCH (12:12)
[2020-09-28] MEDS: FUROSEMIDE 20 MG TABLET PO SCH (16:01)
[2020-09-28 17:36] LABS: MEAN CORPUSCULAR HEMOGLOBIN 29.7 pg (27.0-33.0); MEAN CORPUSCULAR HGB CONC 30.9 g/dL (32.0-36.0); MEAN CORPUSCULAR VOLUME 95.9 fL (79-99); NUCLEATED RED BLOOD CELLS 0.4 % (0.0-0.19); PLATELET COUNT (AUTO) 121 K/uL (130-400); RED BLOOD CELL COUNT(AUTO) 3.44 MIL/uL (4.50-6.20); RED CELL DISTRIBUTION WIDTH 16.3 % (11.0-15.5)
[2020-09-28] MEDS: ATORVASTATIN 40 MG TABLET PO SCH (22:21)
[2020-09-29] VITALS (24 sets, daily range): BP systolic 109–162; BP diastolic 51–88
[2020-09-29 04:39] LABS: HEMATOCRIT 31.8 % (42-54); MEAN CORPUSCULAR HEMOGLOBIN 29.2 pg (27.0-33.0); MEAN CORPUSCULAR HGB CONC 30.8 g/dL (32.0-36.0); MEAN CORPUSCULAR VOLUME 94.6 fL (79-99); NUCLEATED RED BLOOD CELLS 0.5 % (0.0-0.19); RED BLOOD CELL COUNT(AUTO) 3.36 MIL/uL (4.50-6.20); RED CELL DISTRIBUTION WIDTH 15.9 % (11.0-15.5)
[2020-09-29 05:08] LABS: POTASSIUM 3.7 mmol/L (3.5-5.1); THYROID STIMULATING HORMONE 0.26 uIU/mL (0.36-3.74)
[2020-09-29] MEDS: POTASSIUM CHLORIDE 20MEQ/100ML 100 ML IV PRN ×3 (05:26→16:00)
[2020-09-29] MEDS: INSULIN HUMULIN R 100 UNIT/ML 3ML SQ SCH ×4 (06:52→21:00)
[2020-09-29] MEDS: ENOXAPARIN SODIUM 30 MG/0.3 ML SQ SCH (09:00)
[2020-09-29] MEDS: METOPROLOL TARTRATE 25 MG TAB PO SCH ×2 (09:00→21:03)
[2020-09-29] MEDS: BICALUTAMIDE 50 MG PO SCH (09:00)
[2020-09-29] MEDS ORDERED: METOPROLOL TARTRATE 25 MG TAB PO SCH (09:00)
[2020-09-29] MEDS: FAMOTIDINE 20MG VIAL IV SCH ×2 (09:07→21:08)
[2020-09-29] MEDS: POLYETHYLENE GLYCOL 3350 17 GM POWD.PACK PO SCH (09:07)
[2020-09-29] MEDS: FUROSEMIDE 20 MG TABLET PO SCH ×2 (09:07→17:40)
[2020-09-29] MEDS: ASCORBIC ACID 500 MG TAB PO SCH ×2 (09:07→21:03)
[2020-09-29] MEDS: TAMSULOSIN HCL 0.4 MG CAP.ER.24H PO SCH (09:08)
[2020-09-29] MEDS: CALCIUM CARB 500MG CHEW TAB PO SCH ×2 (09:08→21:20)
[2020-09-29] MEDS: ASPIRIN 325MG EC TAB PO SCH (10:28)
[2020-09-29] MEDS: PSYLLIUM SEED 1 EACH PACKET PO SCH (12:03)
[2020-09-29] MEDS ORDERED: THIAMINE HCL 100 MG/ML 2ML VIAL IVP SCH (13:15)
[2020-09-29] MEDS ORDERED: COMPOUND IV REFRIGERATED 1 EACH IVSOLN MISC PRN (13:15)
[2020-09-29] MEDS ORDERED: FOLIC ACID 5 MG/ML VIAL IM SCH ×2 (13:15)
[2020-09-29] MEDS: THIAMINE HCL 100 MG/ML 2ML VIAL IVP SCH (14:06)
[2020-09-29] MEDS: ATORVASTATIN 40 MG TABLET PO SCH (21:03)
[2020-09-29] MEDS: BALSAM PERU/CASTOR OIL 60 GM TUBE TP SCH (21:09)
[2020-09-30] VITALS (23 sets, daily range): BP systolic 99–131; BP diastolic 47–78
[2020-09-30 03:59] LABS: HEMATOCRIT 31.3 % (42-54); MEAN CORPUSCULAR HEMOGLOBIN 29.4 pg (27.0-33.0); MEAN CORPUSCULAR HGB CONC 31.3 g/dL (32.0-36.0); NUCLEATED RED BLOOD CELLS 0.2 % (0.0-0.19); RED BLOOD CELL COUNT(AUTO) 3.33 MIL/uL (4.50-6.20); RED CELL DISTRIBUTION WIDTH 15.7 % (11.0-15.5); WHITE BLOOD COUNT (AUTO) 12.2 K/uL (4.8-10.8)
[2020-09-30] MEDS: ACETAMINOPHEN 325 MG TAB PO PRN ×2 (04:25→05:21)
[2020-09-30 05:08] LABS: MAGNESIUM 2.2 mg/dL (1.80-2.40); POTASSIUM 3.7 mmol/L (3.5-5.1)
[2020-09-30] MEDS: INSULIN HUMULIN R 100 UNIT/ML 3ML SQ SCH ×4 (07:30→21:00)
[2020-09-30] MEDS ORDERED: FUROSEMIDE 20MG VIAL ONE (08:17)
[2020-09-30] MEDS: THIAMINE HCL 100 MG/ML 2ML VIAL IVP SCH (08:42)
[2020-09-30] MEDS: FUROSEMIDE 20 MG TABLET PO SCH (08:45)
[2020-09-30] MEDS: ASCORBIC ACID 500 MG TAB PO SCH ×2 (08:45→20:18)
[2020-09-30] MEDS: BALSAM PERU/CASTOR OIL 60 GM TUBE TP SCH ×3 (08:45→20:18)
[2020-09-30] MEDS: POLYETHYLENE GLYCOL 3350 17 GM POWD.PACK PO SCH (08:45)
[2020-09-30] MEDS: METOPROLOL TARTRATE 25 MG TAB PO SCH ×2 (08:45→20:11)
[2020-09-30] MEDS: CALCIUM CARB 500MG CHEW TAB PO SCH ×2 (08:45→20:18)
[2020-09-30] MEDS: TAMSULOSIN HCL 0.4 MG CAP.ER.24H PO SCH (08:45)
[2020-09-30] MEDS: FOLIC ACID 5 MG/ML VIAL IV SCH (08:45)
[2020-09-30] MEDS: FAMOTIDINE 20MG VIAL IV SCH ×2 (08:45→20:11)
[2020-09-30] MEDS: BICALUTAMIDE 50 MG PO SCH (09:00)
[2020-09-30] MEDS: ENOXAPARIN SODIUM 30 MG/0.3 ML SQ SCH (09:20)
[2020-09-30] MEDS: ASPIRIN 325MG EC TAB PO SCH (09:20)
[2020-09-30] MEDS: PSYLLIUM SEED 1 EACH PACKET PO SCH (12:27)
[2020-09-30] MEDS: FUROSEMIDE 20MG VIAL IV SCH ×2 (17:08→20:00)
[2020-09-30] MEDS: ATORVASTATIN 40 MG TABLET PO SCH (20:11)
[2020-10-01 00:01] VITALS: BP 103/58
[2020-10-01 04:16] VITALS: BP 110/62
[2020-10-01 06:24] LABS: BASOPHILS % (AUTO) 0.3 % (0.0-5.0); EOSINOPHILS % (AUTO) 3.3 % (0.0-8.0); HEMATOCRIT 32.8 % (42-54); LYMPHOCYTES % (AUTO) 4.9 % (21.0-51.0); MEAN CORPUSCULAR HEMOGLOBIN 29.2 pg (27.0-33.0); MEAN CORPUSCULAR HGB CONC 31.4 g/dL (32.0-36.0); MEAN CORPUSCULAR VOLUME 92.9 fL (79-99); NEUTROPHILS % (AUTO) 82.9 % (40.0-77.0); PLATELET COUNT (AUTO) 160 K/uL (130-400); RED BLOOD CELL COUNT(AUTO) 3.53 MIL/uL (4.50-6.20); RED CELL DISTRIBUTION WIDTH 15.1 % (11.0-15.5); WHITE BLOOD COUNT (AUTO) 8.9 K/uL (4.8-10.8)
[2020-10-01 06:35] LABS: MAGNESIUM 2.2 mg/dL (1.80-2.40); POTASSIUM 3.4 mmol/L (3.5-5.1)
[2020-10-01 07:00] VITALS: BP 119/68
[2020-10-01] MEDS: INSULIN HUMULIN R 100 UNIT/ML 3ML SQ SCH ×4 (07:30→21:00)
[2020-10-01] MEDS: FOLIC ACID 5 MG/ML VIAL IV SCH (09:00)
[2020-10-01] MEDS: BICALUTAMIDE 50 MG PO SCH (09:00)
[2020-10-01] MEDS: POLYETHYLENE GLYCOL 3350 17 GM POWD.PACK PO SCH (09:55)
[2020-10-01] MEDS: METOPROLOL TARTRATE 25 MG TAB PO SCH ×2 (09:55→22:12)
[2020-10-01] MEDS: CALCIUM CARB 500MG CHEW TAB PO SCH ×2 (09:55→22:11)
[2020-10-01] MEDS: THIAMINE HCL 100 MG/ML 2ML VIAL IVP SCH (09:55)
[2020-10-01] MEDS: TAMSULOSIN HCL 0.4 MG CAP.ER.24H PO SCH (09:55)
[2020-10-01] MEDS: ASPIRIN 325MG EC TAB PO SCH (09:56)
[2020-10-01] MEDS: ASCORBIC ACID 500 MG TAB PO SCH ×2 (09:56→22:12)
[2020-10-01] MEDS: FAMOTIDINE 20MG VIAL IV SCH ×2 (09:56→22:11)
[2020-10-01] MEDS: ENOXAPARIN SODIUM 30 MG/0.3 ML SQ SCH (09:56)
[2020-10-01] MEDS: CLOPIDOGREL 75MG TAB PO SCH (09:57)
[2020-10-01] MEDS: LISINOPRIL 5 MG TABLET PO SCH (09:57)
[2020-10-01] MEDS: BALSAM PERU/CASTOR OIL 60 GM TUBE TP SCH ×3 (09:59→22:13)
[2020-10-01] MEDS: FUROSEMIDE 20MG VIAL IV SCH (09:59)
[2020-10-01 11:00] VITALS: BP 112/66
[2020-10-01] MEDS: PSYLLIUM SEED 1 EACH PACKET PO SCH (12:00)
[2020-10-01 16:00] VITALS: BP 110/59
[2020-10-01] MEDS ORDERED: FUROSEMIDE 20 MG TABLET PO SCH (17:00)
[2020-10-01 19:58] VITALS: BP 120/61
[2020-10-01] MEDS: ATORVASTATIN 40 MG TABLET PO SCH (22:12)
[2020-10-02] VITALS (7 sets, daily range): BP systolic 95–125; BP diastolic 59–75
[2020-10-02 04:54] LABS: BASOPHILS % (AUTO) 0.3 % (0.0-5.0); EOSINOPHILS % (AUTO) 4.3 % (0.0-8.0); HEMATOCRIT 31.8 % (42-54); MEAN CORPUSCULAR HEMOGLOBIN 29.1 pg (27.0-33.0); MEAN CORPUSCULAR HGB CONC 32.4 g/dL (32.0-36.0); MEAN CORPUSCULAR VOLUME 89.8 fL (79-99); MONOCYTES % (AUTO) 8.7 % (3.0-13.0); NEUTROPHILS % (AUTO) 78.7 % (40.0-77.0); NUCLEATED RED BLOOD CELLS 0.3 % (0.0-0.19); PLATELET COUNT (AUTO) 184 K/uL (130-400); RED BLOOD CELL COUNT(AUTO) 3.54 MIL/uL (4.50-6.20); WHITE BLOOD COUNT (AUTO) 7.4 K/uL (4.8-10.8)
[2020-10-02 05:23] LABS: ALBUMIN 2.1 g/dL (3.5-5.0); BILIRUBIN,TOTAL 2.5 mg/dL (0.2-1.0); CREATININE 0.9 mg/dL (0.5-1.5); POTASSIUM 3.3 mmol/L (3.5-5.1); TOTAL PROTEIN, SERUM 5.3 g/dL (6.0-8.3)
[2020-10-02] MEDS: INSULIN HUMULIN R 100 UNIT/ML 3ML SQ SCH ×4 (07:24→21:00)
[2020-10-02] MEDS: BALSAM PERU/CASTOR OIL 60 GM TUBE TP SCH ×3 (09:00→21:03)
[2020-10-02] MEDS: BICALUTAMIDE 50 MG PO SCH (09:00)
[2020-10-02] MEDS: CALCIUM CARB 500MG CHEW TAB PO SCH ×2 (09:00→21:01)
[2020-10-02] MEDS: PSYLLIUM SEED 1 EACH PACKET PO SCH (11:55)
[2020-10-02] MEDS: POLYETHYLENE GLYCOL 3350 17 GM POWD.PACK PO SCH (11:55)
[2020-10-02] MEDS: ENOXAPARIN SODIUM 30 MG/0.3 ML SQ SCH (11:55)
[2020-10-02] MEDS: ASCORBIC ACID 500 MG TAB PO SCH ×2 (11:56→21:01)
[2020-10-02] MEDS: LISINOPRIL 5 MG TABLET PO SCH (11:56)
[2020-10-02] MEDS: ASPIRIN 325MG EC TAB PO SCH (11:56)
[2020-10-02] MEDS: METOPROLOL TARTRATE 25 MG TAB PO SCH ×2 (11:56→21:00)
[2020-10-02] MEDS: THIAMINE HCL 100 MG/ML 2ML VIAL IVP SCH (11:57)
[2020-10-02] MEDS: CLOPIDOGREL 75MG TAB PO SCH (11:57)
[2020-10-02] MEDS: FAMOTIDINE 20MG VIAL IV SCH ×2 (11:57→21:01)
[2020-10-02] MEDS: TAMSULOSIN HCL 0.4 MG CAP.ER.24H PO SCH (11:57)
[2020-10-02] MEDS: FOLIC ACID 5 MG/ML VIAL IV SCH (12:03)
[2020-10-02] MEDS: FUROSEMIDE 20 MG TABLET PO SCH (16:55)
[2020-10-02] MEDS: KCL 20 MEQ ERTAB PO SCH (16:56)
[2020-10-02] MEDS: ATORVASTATIN 40 MG TABLET PO SCH (21:01)
[2020-10-03] VITALS (7 sets, daily range): BP systolic 97–123; BP diastolic 41–65
[2020-10-03 04:50] LABS: BASOPHILS % (AUTO) 0.4 % (0.0-5.0); HEMATOCRIT 31.4 % (42-54); LYMPHOCYTES % (AUTO) 5.7 % (21.0-51.0); MEAN CORPUSCULAR HEMOGLOBIN 29.4 pg (27.0-33.0); MEAN CORPUSCULAR HGB CONC 32.2 g/dL (32.0-36.0); MEAN CORPUSCULAR VOLUME 91.5 fL (79-99); MONOCYTES % (AUTO) 8.4 % (3.0-13.0); NEUTROPHILS % (AUTO) 75.1 % (40.0-77.0); PLATELET COUNT (AUTO) 218 K/uL (130-400); RED BLOOD CELL COUNT(AUTO) 3.43 MIL/uL (4.50-6.20)
[2020-10-03] MEDS: INSULIN HUMULIN R 100 UNIT/ML 3ML SQ SCH ×4 (05:44→21:00)
[2020-10-03] MEDS: FUROSEMIDE 20 MG TABLET PO SCH ×2 (08:20→17:03)
[2020-10-03] MEDS: POLYETHYLENE GLYCOL 3350 17 GM POWD.PACK PO SCH (08:20)
[2020-10-03] MEDS: ASPIRIN 325MG EC TAB PO SCH (08:20)
[2020-10-03] MEDS: KCL 20 MEQ ERTAB PO SCH ×2 (08:21→17:04)
[2020-10-03] MEDS: CALCIUM CARB 500MG CHEW TAB PO SCH ×2 (08:21→20:16)
[2020-10-03] MEDS: FAMOTIDINE 20MG VIAL IV SCH (08:21)
[2020-10-03] MEDS: FOLIC ACID 1 MG TABLET PO SCH (08:21)
[2020-10-03] MEDS: METOPROLOL TARTRATE 25 MG TAB PO SCH ×2 (08:21→20:17)
[2020-10-03] MEDS: ASCORBIC ACID 500 MG TAB PO SCH ×2 (08:21→20:16)
[2020-10-03] MEDS: LISINOPRIL 5 MG TABLET PO SCH (08:22)
[2020-10-03] MEDS: THIAMINE HCL 100 MG/ML 2ML VIAL IVP SCH (08:22)
[2020-10-03] MEDS: TAMSULOSIN HCL 0.4 MG CAP.ER.24H PO SCH (08:22)
[2020-10-03] MEDS: CLOPIDOGREL 75MG TAB PO SCH (08:22)
[2020-10-03] MEDS: BICALUTAMIDE 50 MG PO SCH (08:23)
[2020-10-03] MEDS: BALSAM PERU/CASTOR OIL 60 GM TUBE TP SCH ×3 (08:23→21:03)
[2020-10-03] MEDS: ENOXAPARIN SODIUM 30 MG/0.3 ML SQ SCH (08:23)
[2020-10-03] MEDS: PSYLLIUM SEED 1 EACH PACKET PO SCH (12:26)
[2020-10-03] MEDS ORDERED: FAMOTIDINE 20MG TAB ONE (19:55)
[2020-10-03] MEDS: ATORVASTATIN 40 MG TABLET PO SCH (20:16)
[2020-10-03] MEDS: FAMOTIDINE 20MG TAB PO SCH (20:17)
[2020-10-04 04:34] VITALS: BP 119/69
[2020-10-04 05:32] LABS: ALBUMIN 2.2 g/dL (3.5-5.0); BILIRUBIN,TOTAL 2.1 mg/dL (0.2-1.0); CREATININE 0.9 mg/dL (0.5-1.5); POTASSIUM 3.5 mmol/L (3.5-5.1); TOTAL PROTEIN, SERUM 5.4 g/dL (6.0-8.3)
[2020-10-04] MEDS: INSULIN HUMULIN R 100 UNIT/ML 3ML SQ SCH ×3 (06:00→16:30)
[2020-10-04 08:00] VITALS: BP 124/66
[2020-10-04] MEDS ORDERED: ASPIRIN 81 MG EC TAB ONE (08:31)
[2020-10-04] MEDS: CALCIUM CARB 500MG CHEW TAB PO SCH ×2 (08:56→21:23)
[2020-10-04] MEDS: POLYETHYLENE GLYCOL 3350 17 GM POWD.PACK PO SCH (08:56)
[2020-10-04] MEDS: FOLIC ACID 1 MG TABLET PO SCH (08:56)
[2020-10-04] MEDS: TAMSULOSIN HCL 0.4 MG CAP.ER.24H PO SCH (08:57)
[2020-10-04] MEDS: CLOPIDOGREL 75MG TAB PO SCH (08:57)
[2020-10-04] MEDS: FUROSEMIDE 20 MG TABLET PO SCH ×2 (08:57→16:55)
[2020-10-04] MEDS: FAMOTIDINE 20MG TAB PO SCH ×2 (08:57→21:24)
[2020-10-04] MEDS: LISINOPRIL 5 MG TABLET PO SCH (08:58)
[2020-10-04] MEDS: ASCORBIC ACID 500 MG TAB PO SCH ×2 (08:58→21:24)
[2020-10-04] MEDS: METOPROLOL TARTRATE 25 MG TAB PO SCH ×2 (08:58→21:23)
[2020-10-04] MEDS: THIAMINE HCL 100 MG/ML 2ML VIAL IVP SCH (08:59)
[2020-10-04] MEDS: KCL 20 MEQ ERTAB PO SCH ×2 (08:59→16:55)
[2020-10-04] MEDS: ASPIRIN 325MG EC TAB PO SCH (09:00)
[2020-10-04] MEDS: ENOXAPARIN SODIUM 30 MG/0.3 ML SQ SCH (09:00)
[2020-10-04] MEDS: BICALUTAMIDE 50 MG PO SCH (09:00)
[2020-10-04] MEDS: BALSAM PERU/CASTOR OIL 60 GM TUBE TP SCH ×2 (09:14→14:16)
[2020-10-04 12:07] VITALS: BP 111/60
[2020-10-04] MEDS: PSYLLIUM SEED 1 EACH PACKET PO SCH (12:26)
[2020-10-04 16:00] VITALS: BP 103/65
[2020-10-04 19:50] VITALS: BP 102/56
[2020-10-04 21:00] VITALS: BP 114/62
[2020-10-04] MEDS: ATORVASTATIN 40 MG TABLET PO SCH (21:22)
[2021-01-28] MEDS ORDERED: CARV3.12 PO (18:46)
[2021-01-28] MEDS ORDERED: ATOR40TA69 PO (18:46)
[2021-01-28] MEDS ORDERED: AEC81 PO (18:46)
[2021-01-28] MEDS ORDERED: [UNRECOGNIZED DRUG - OTHER] PO (18:46)
[2021-01-28] MEDS ORDERED: FURO20TA4 PO (18:46)
[2021-01-28] MEDS ORDERED: MELA3TAB41 PO (18:46)
[2021-01-28] MEDS ORDERED: FOLI0.4T6 PO (18:46)
[2021-01-28] MEDS ORDERED: ASCO500C18 PO (18:47)
[2021-02-18] MEDS ORDERED: THIA100T91 PO (10:26)
[2021-02-18] MEDS ORDERED: FURO10SO PO (10:26)
[2021-02-18] MEDS ORDERED: BICALUTAMIDE (10:26)
[2021-02-18] MEDS ORDERED: SACU1TAB PO (10:26)
[2021-02-18] MEDS ORDERED: CHOL2000 PO (10:26)
[2021-02-19] MEDS ORDERED: CARV3.12 PO (17:21)
[2021-02-21] MEDS ORDERED: LEVO500T90 PO (14:23)
[2021-03-10] MEDS ORDERED: LEVO500T90 PO (15:06)
== END 2020-10-04 23:18 | DRG 233 ==
LOC: EDH 04:36 → EDHIP 07:01 → 4CH 15:02 → 2CH 09-25 12:34 → 2DH 09-30 13:55 → 4CH 10-01 00:27
PROVIDERS: ADMIT Internal Medicine; ATTEND Internal Medicine
PROC: 0QH734Z Insertion of Internal Fixation Device into Left Upper Femur, Percutaneous Approach (ICD-10-PCS; 2020-09-24)
PROC: 4A023N7 Measurement of Cardiac Sampling and Pressure, Left Heart, Percutaneous Approach (ICD-10-PCS; principal; 2020-09-25)
PROC: 5A02210 Assistance with Cardiac Output using Balloon Pump, Continuous (ICD-10-PCS; 2020-09-25)
PROC: B2111ZZ Fluoroscopy of Multiple Coronary Arteries using Low Osmolar Contrast (ICD-10-PCS; 2020-09-25)
PROC: B2151ZZ Fluoroscopy of Left Heart using Low Osmolar Contrast (ICD-10-PCS; 2020-09-25)
PROC: 021209W Bypass Coronary Artery, Three Arteries from Aorta with Autologous Venous Tissue, Open Approach (ICD-10-PCS; 2020-09-26)
PROC: 06BQ4ZZ Excision of Left Saphenous Vein, Percutaneous Endoscopic Approach (ICD-10-PCS; 2020-09-26)
PROC: 30233N1 Transfusion of Nonautologous Red Blood Cells into Peripheral Vein, Percutaneous Approach (ICD-10-PCS; 2020-09-26)
PROC: 5A1221Z Performance of Cardiac Output, Continuous (ICD-10-PCS; 2020-09-26)
PROC: B245ZZ4 Ultrasonography of Left Heart, Transesophageal (ICD-10-PCS; 2020-09-26)
PROC: 02100Z9 Bypass Coronary Artery, One Artery from Left Internal Mammary, Open Approach (ICD-10-PCS; 2020-09-26 16:00)
PROC: 5A09357 Assistance with Respiratory Ventilation, Less than 24 Consecutive Hours, Continuous Positive Airway Pressure (ICD-10-PCS; 2020-09-27)
DX: I21.4 Non-ST elevation (NSTEMI) myocardial infarction (principal); S72.002A Fracture of unspecified part of neck of left femur, initial encounter for closed fracture; I50.22 Chronic systolic (congestive) heart failure; F05 Delirium due to known physiological condition; Q25.0 Patent ductus arteriosus; I25.5 Ischemic cardiomyopathy; I11.0 Hypertensive heart disease with heart failure; D72.829 Elevated white blood cell count, unspecified; E78.5 Hyperlipidemia, unspecified; I25.10 Atherosclerotic heart disease of native coronary artery without angina pectoris; I73.9 Peripheral vascular disease, unspecified; E78.00 Pure hypercholesterolemia, unspecified; E87.6 Hypokalemia; I21.3 ST elevation (STEMI) myocardial infarction of unspecified site; K59.00 Constipation, unspecified; R31.0 Gross hematuria; L89.159 Pressure ulcer of sacral region, unspecified stage; Z20.822 Contact with and (suspected) exposure to COVID-19; N40.0 Benign prostatic hyperplasia without lower urinary tract symptoms; W10.9XXA Fall (on) (from) unspecified stairs and steps, initial encounter; Y93.89 Activity, other specified; Y92.098 Other place in other non-institutional residence as the place of occurrence of the external cause; Y99.8 Other external cause status; Z79.02 Long term (current) use of antithrombotics/antiplatelets; Z79.82 Long term (current) use of aspirin; Z79.899 Other long term (current) drug therapy; Z92.3 Personal history of irradiation; Z87.891 Personal history of nicotine dependence; Z86.73 Personal history of transient ischemic attack (TIA), and cerebral infarction without residual deficits; Z85.46 Personal history of malignant neoplasm of prostate; Z83.3 Family history of diabetes mellitus; Z82.5 Family history of asthma and other chronic lower respiratory diseases; Z82.49 Family history of ischemic heart disease and other diseases of the circulatory system; Z82.3 Family history of stroke; Z82.0 Family history of epilepsy and other diseases of the nervous system; Z80.42 Family history of malignant neoplasm of prostate; J98.4 Other disorders of lung
CPT/HCPCS: 33967; 36415; 70450; 71045; 73502; 73503; 74176; 80048; 80053; 80061; 80076; 81001; 82435; 82550; 82607; 82746; 82803; 82947; 82948; 83036; 83605; 83690; 83735; 83880; 84100; 84132; 84145; 84295; 84439; 84443; 84481; 84484; 85018; 85025; 85027; 85347; 85610; 85730; 86592; 86850; 86900; 86901; 86923; 87426; 93005; 93313; 93458; 93880; 94002; 94003; 94010; 94660; 97039; 99156; 99157; A4357; A7048; C1894; G0378; J0171; J0282; J0583; J0610; J0690; J0696; J1100; J1644; J1650; J1815; J1940; J2001; J2150; J2250; J2270; J2370; J2405; J2440; J2704; J2710; J2720; J2795; J3010; J3411; J3475; J3480; J3490; J7030; J7040; J7060; J7120; P9016; P9047; Q9967; U0003

== ENCOUNTER 2020-10-05 09:48 | Emergency (ER) | payer MEDICARE ==
[~2020-10-05 09:48] MED LIST changes: +ASCO500T20 PO; +BICALUTAMIDE PO; +CALC600T15 PO; +ECHI400C18 PO; +FAMO40TA75 PO; +MV-M1TAB20 PO; +OMEP40CA13 PO
[2020-10-05 10:21] LABS: BASOPHILS % (AUTO) 0.3 % (0.0-5.0); EOSINOPHILS % (AUTO) 5.3 % (0.0-8.0); HEMATOCRIT 31.4 % (42-54); MEAN CORPUSCULAR HEMOGLOBIN 29.4 pg (27.0-33.0); MEAN CORPUSCULAR HGB CONC 32.2 g/dL (32.0-36.0); MEAN CORPUSCULAR VOLUME 91.5 fL (79-99); MONOCYTES % (AUTO) 5.8 % (3.0-13.0); NEUTROPHILS % (AUTO) 80.4 % (40.0-77.0); PLATELET COUNT (AUTO) 315 K/uL (130-400); RED BLOOD CELL COUNT(AUTO) 3.43 MIL/uL (4.50-6.20); RED CELL DISTRIBUTION WIDTH 15.4 % (11.0-15.5); WHITE BLOOD COUNT (AUTO) 8.6 K/uL (4.8-10.8)
[2020-10-05 10:32] LABS: CREATININE 0.9 mg/dL (0.5-1.5); POTASSIUM 3.9 mmol/L (3.5-5.1)
[2020-10-05 10:34] LABS: INR 1.1 (0.85-1.15); PROTHROMBIN TIME 11.9 SEC (9.6-11.6)
[2020-10-05 10:35] LABS: PARTIAL THROMBOPLASTIN TIME 25.4 SEC (26.3-35.5)
[2020-10-05 10:41] LABS: ALBUMIN 2.4 g/dL (3.5-5.0); BILIRUBIN,TOTAL 2.1 mg/dL (0.2-1.0); TOTAL PROTEIN, SERUM 6.1 g/dL (6.0-8.3)
[2020-10-05 10:50] LABS: AMPHET/METH SCREEN,URINE NEGATIVE (NEGATIVE); BARBITURATE SCREEN, URINE NEGATIVE (NEGATIVE); BENZODIAZEPINES SCREEN,URINE NEGATIVE (NEGATIVE); CANNABINOID SCREEN,URINE NEGATIVE (NEGATIVE); COCAINE SCREEN,URINE NEGATIVE (NEGATIVE); OPIATE SCREEN,URINE NEGATIVE (NEGATIVE); PHENCYCLIDINE SCREEN,URINE NEGATIVE (NEGATIVE)
== END 2020-10-05 14:02 | disposition home or self-care (01) ==
LOC: EDH 09:48
DX: R41.82 Altered mental status, unspecified (principal); E78.00 Pure hypercholesterolemia, unspecified; I10 Essential (primary) hypertension; Z98.890 Other specified postprocedural states; Z90.49 Acquired absence of other specified parts of digestive tract; Z79.899 Other long term (current) drug therapy
CPT/HCPCS: 36415; 70450; 80053; 80305; 82550; 82948; 84484; 85025; 85610; 85730; 93005

== ENCOUNTER → 2020-12-24 | Outpatient (CLI) | payer MEDICARE ==
[~2020-12-24] MED LIST changes: +CALC-1125 PO; -CALC600T15 PO
== END | disposition home or self-care (01) ==
LOC: RAH 10:02
PROVIDERS: ATTEND Internal Medicine Cardiovascular Disease
DX: I34.0 Nonrheumatic mitral (valve) insufficiency (principal); I25.10 Atherosclerotic heart disease of native coronary artery without angina pectoris; I10 Essential (primary) hypertension; Z86.73 Personal history of transient ischemic attack (TIA), and cerebral infarction without residual deficits; E78.5 Hyperlipidemia, unspecified; I21.4 Non-ST elevation (NSTEMI) myocardial infarction; I25.5 Ischemic cardiomyopathy; Z95.1 Presence of aortocoronary bypass graft; R55 Syncope and collapse
CPT/HCPCS: 93306; 93356

== ENCOUNTER 2021-01-29 07:05 | Day surgery (SDC) | payer MEDICARE ==
[2021-01-23 13:10] LABS: BASOPHILS % (AUTO) 0.4 % (0.0-5.0); EOSINOPHILS % (AUTO) 1.9 % (0.0-8.0); HEMATOCRIT 42.5 % (42-54); LYMPHOCYTES % (AUTO) 9.5 % (21.0-51.0); MEAN CORPUSCULAR HEMOGLOBIN 28.5 pg (27.0-33.0); MEAN CORPUSCULAR HGB CONC 30.8 g/dL (32.0-36.0); MEAN CORPUSCULAR VOLUME 92.4 fL (79-99); MONOCYTES % (AUTO) 7.1 % (3.0-13.0); NEUTROPHILS % (AUTO) 80.9 % (40.0-77.0); PLATELET COUNT (AUTO) 180 K/uL (130-400); WHITE BLOOD COUNT (AUTO) 5.7 K/uL (4.8-10.8)
[2021-01-23 13:18] LABS: CREATININE 1.3 mg/dL (0.5-1.5); POTASSIUM 5.1 mmol/L (3.5-5.1)
[2021-01-23 13:21] LABS: INR 1.02 (0.85-1.15); PROTHROMBIN TIME 11.1 SEC (9.6-11.6)
[2021-01-23 13:22] LABS: PARTIAL THROMBOPLASTIN TIME 24.4 SEC (26.3-35.5)
[2021-01-23 14:19] LABS: APPEARANCE,URINE Clear (CLEAR); BILIRUBIN,URINE Negative (NEGATIVE); COLOR,URINE Yellow (YELLOW); GLUCOSE, URINE (UA) Negative (NEGATIVE); KETONES,URINE Negative (NEGATIVE); LEUKOCYTE ESTERASE ,URINE Trace (NEGATIVE); NITRATE,URINE Negative (NEGATIVE); OCCULT BLOOD,URINE Small (NEGATIVE); PROTEIN,URINE Negative (NEGATIVE); UROBILINOGEN,URINE 0.2 mg/dL (0.2-1.0)
[2021-01-23 14:59] LABS: BACTERIA,URINE Rare /HPF (None Seen); RBC,URINE 0-1 /HPF (0-1); WBC,URINE 0-1 /HPF (0-1)
[2021-01-28 09:49] VITALS: BP 87/55
[2021-01-29] VITALS (22 sets, daily range): BP systolic 87–108; BP diastolic 47–62
[~2021-01-29] VITALS: Ht 177.8 cm; Wt 90.6 kg
[~2021-01-29 07:05] MED LIST changes: +AEC81 PO; +ASCO500C18 PO; +ATOR40TA69 PO; -BICALUTAMIDE PO; +CARV3.12 PO; -ECHI400C18 PO; +FOLI0.4T6 PO; +FURO20TA4 PO; -LISI20TA24 PO; +MELA3TAB41 PO; -METO100T14 PO; -MV-M1TAB20 PO; -OMEP40CA13 PO; -PRAV40TA3 PO; +[UNRECOGNIZED DRUG - OTHER] PO
[2021-01-29] MEDS ORDERED: LACTATED RINGERS 1000ML 1,000 ML IV ONE (07:33)
[2021-01-29] MEDS ORDERED: PROPOFOL 10 MG/ML 20ML VIAL IV ONE (07:59)
[2021-01-29] MEDS ORDERED: DEXAMETHASONE SOD PHOSPHATE 10MG/ML 1ML VIAL ONE (07:59)
[2021-01-29] MEDS ORDERED: ONDANSETRON 4MG INJ ONE (07:59)
[2021-01-29] MEDS ORDERED: FENTANYL CITRATE PF 50 MCG/1 ML 2ML VIAL ONE ×2 (07:59→13:53)
[2021-01-29] MEDS ORDERED: MIDAZOLAM HCL 1 MG/ML 2ML VIAL ONE ×2 (07:59→13:53)
[2021-01-29] MEDS ORDERED: LIDOCAINE PF 100MG/5ML (2%) SYRINGE 5ML ONE ×2 (07:59→09:57)
[2021-01-29] MEDS ORDERED: SUCCINYLCHOLINE 200MG/10ML SYR ONE (07:59)
[2021-01-29] MEDS ORDERED: GENTAMICIN 80 MG/NS 100 ML PB 100 ML IV ONE (08:00)
[2021-01-29] MEDS ORDERED: MEPERIDINE-PF 25 MG/ML SYG ONE (08:01)
[2021-01-29] MEDS ORDERED: IOHEXOL-350 50ML VIAL IV ONE (08:12)
[2021-01-29] MEDS: CEFTRIAXONE 1G VIAL IVP ONE ×2 (08:19→09:00)
[2021-01-29] MEDS ORDERED: EPHEDRINE SULFATE 50 MG/ML AMPULE ONE (09:05)
[2021-01-29] MEDS ORDERED: METHYLENE BLUE 5 MG/ML AMP ONE (09:22)
[2021-01-29] MEDS ORDERED: PHENYLEPHRINE HCL 10 MG/ML 1ML VIAL IV ONE (09:22)
[2021-01-29] MEDS ORDERED: LIDOCAINE HCL 1% MDV 50ML VIAL ONE (13:02)
[2021-01-29] MEDS ORDERED: IODIXANOL 320 MG/ML 100 ML VIAL ONE (13:02)
[2021-02-18] MEDS ORDERED: THIA100T91 PO (10:26)
[2021-02-18] MEDS ORDERED: CHOL2000 PO (10:26)
[2021-02-18] MEDS ORDERED: BICALUTAMIDE (10:26)
[2021-02-18] MEDS ORDERED: FURO10SO PO (10:26)
[2021-02-18] MEDS ORDERED: SACU1TAB PO (10:26)
[2021-02-19] MEDS ORDERED: CARV3.12 PO (17:21)
[2021-02-21] MEDS ORDERED: LEVO500T89 PO (14:23)
== END 2021-01-29 15:30 | disposition home or self-care (01) ==
LOC: DAH 07:05
PROVIDERS: ATTEND Urology
DX: N13.30 Unspecified hydronephrosis (principal); N30.80 Other cystitis without hematuria; I10 Essential (primary) hypertension; I25.10 Atherosclerotic heart disease of native coronary artery without angina pectoris; K21.9 Gastro-esophageal reflux disease without esophagitis; Z79.01 Long term (current) use of anticoagulants; Z86.73 Personal history of transient ischemic attack (TIA), and cerebral infarction without residual deficits; Z85.46 Personal history of malignant neoplasm of prostate
CPT/HCPCS: 36415; 50432; 52204; 71045; 75989; 80048; 81001; 85025; 85610; 85730; 87088; 87635; 88305; 88341; 88342; 93005; A4215; A4221; A4222; A4223; A4358; A4600; A4663; A6260; C1729; C1758; C1769 ×2; C1894; C9803; J0330; J0696; J1100; J1580; J1644; J2001 ×2; J2175; J2250 ×2; J2370; J2405; J2704; J3010 ×2; J3490 ×2; J7120 ×2; Q9967 ×2; Q9968; 99156

== ENCOUNTER 2021-02-06 22:56 | Emergency (ER) | payer MEDICARE ==
[~2021-02-06] VITALS: Ht 177.8 cm; Wt 86.2 kg
[2021-02-06 23:31] VITALS: BP 142/69
== END 2021-02-07 01:36 | disposition home or self-care (01) ==
LOC: EDH 23:53
DX: N13.5 Crossing vessel and stricture of ureter without hydronephrosis (principal); I10 Essential (primary) hypertension; E78.00 Pure hypercholesterolemia, unspecified; Z79.82 Long term (current) use of aspirin; Z43.6 Encounter for attention to other artificial openings of urinary tract; Z79.899 Other long term (current) drug therapy; Z95.0 Presence of cardiac pacemaker
CPT/HCPCS: 74176

== ENCOUNTER 2021-03-11 10:00 | Day surgery (SDC) | payer MEDICARE ==
[2021-03-09 10:51] LABS: BASOPHILS % (AUTO) 0.5 % (0.0-5.0); EOSINOPHILS % (AUTO) 3.6 % (0.0-8.0); HEMATOCRIT 39.9 % (42-54); LYMPHOCYTES % (AUTO) 9.4 % (21.0-51.0); MEAN CORPUSCULAR HEMOGLOBIN 29.5 pg (27.0-33.0); MEAN CORPUSCULAR HGB CONC 31.1 g/dL (32.0-36.0); MEAN CORPUSCULAR VOLUME 94.8 fL (79-99); MONOCYTES % (AUTO) 9.4 % (3.0-13.0); NEUTROPHILS % (AUTO) 76.8 % (40.0-77.0); PLATELET COUNT (AUTO) 255 K/uL (130-400); RED BLOOD CELL COUNT(AUTO) 4.21 MIL/uL (4.50-6.20); RED CELL DISTRIBUTION WIDTH 15.7 % (11.0-15.5); WHITE BLOOD COUNT (AUTO) 5.8 K/uL (4.8-10.8)
[2021-03-09 10:57] LABS: APPEARANCE,URINE Cloudy (CLEAR); BILIRUBIN,URINE Negative (NEGATIVE); COLOR,URINE Yellow (YELLOW); GLUCOSE, URINE (UA) Negative (NEGATIVE); KETONES,URINE Negative (NEGATIVE); LEUKOCYTE ESTERASE ,URINE Large (NEGATIVE); NITRATE,URINE Positive (NEGATIVE); OCCULT BLOOD,URINE Small (NEGATIVE); PROTEIN,URINE POS 1+ mg/dL (NEGATIVE); UROBILINOGEN,URINE 0.2 mg/dL (0.2-1.0)
[2021-03-09 11:00] LABS: CREATININE 1.1 mg/dL (0.5-1.5); POTASSIUM 4.3 mmol/L (3.5-5.1)
[2021-03-09 11:14] LABS: BACTERIA,URINE Moderate /HPF (None Seen); MUCUS,URINE Few LPF (None Seen); SQUAMOUS EPITHELIAL CELL,UR Rare /HPF (0-2); WBC,URINE 51-100 /HPF (0-1)
[2021-03-10 14:36] VITALS: BP 100/57
[~2021-03-11] VITALS: Ht 177.8 cm; Wt 87.6 kg
[~2021-03-11 10:00] MED LIST changes: -AEC81 PO; -ASCO500C18 PO; +CHOL2000 PO; -FAMO40TA75 PO; -FURO20TA4 PO; +GENTAMICIN 80 MG/NS 100 ML PB 100 ML IV PRN; +LEVO500T89 PO; +LEVOFLOXACIN 500 MG/D5W 100 ML 100 ML IV PRN; -[UNRECOGNIZED DRUG - OTHER] PO
[2021-03-11 10:15] VITALS: BP 90/50
[2021-03-11] MEDS ORDERED: 0.9%NACL 1000ML 1,000 ML IV ONE (10:33)
[2021-03-11] MEDS ORDERED: LIDOCAINE HCL 400MG/20ML VIAL ONE (11:15)
[2021-03-11] MEDS ORDERED: FENTANYL CITRATE PF 50 MCG/1 ML 2ML VIAL ONE ×2 (11:15→12:38)
[2021-03-11] MEDS ORDERED: SODIUM BICARB 50MEQ 50ML VIAL 50 ML ONE (11:15)
[2021-03-11] MEDS ORDERED: IODIXANOL 320 MG/ML 100 ML VIAL ONE ×2 (11:15→11:52)
[2021-03-11] MEDS ORDERED: MIDAZOLAM HCL 1 MG/ML 2ML VIAL ONE ×2 (11:15→12:38)
[2021-03-11 14:35] VITALS: BP 108/70
[2021-03-11 14:50] VITALS: BP 103/63
[2021-03-11 15:05] VITALS: BP 102/62
[2021-03-11 15:44] VITALS: BP 112/70
== END 2021-03-11 15:50 | disposition home or self-care (01) ==
LOC: DAH 10:00
PROVIDERS: ATTEND Urology
DX: N13.30 Unspecified hydronephrosis (principal); Z20.822 Contact with and (suspected) exposure to COVID-19; I10 Essential (primary) hypertension; E78.5 Hyperlipidemia, unspecified; Z88.0 Allergy status to penicillin; Z79.899 Other long term (current) drug therapy; Z79.82 Long term (current) use of aspirin; Z86.73 Personal history of transient ischemic attack (TIA), and cerebral infarction without residual deficits
CPT/HCPCS: 36415; 50693; 50706; 80048; 81001; 85025; 87077; 87088; 87186; 87635; 93005; A4215; A4221; A4222; A4223; A4663; A6260; C1725 ×2; C1729; C1769 ×7; C1887 ×3; C1893; C1894 ×2; C2617; C9803; J1580; J1644; J1956; J2250 ×2; J3010 ×2; J3490 ×2; J7030; Q9967 ×2; 99156; 99157

== ENCOUNTER 2021-03-18 09:00 | Day surgery (SDC) | payer MEDICARE ==
[~2021-03-18 09:00] MED LIST changes: -GENTAMICIN 80 MG/NS 100 ML PB 100 ML IV PRN; -LEVOFLOXACIN 500 MG/D5W 100 ML 100 ML IV PRN
[2021-03-18] MEDS ORDERED: SODIUM BICARB 50MEQ 50ML VIAL 50 ML ONE (10:54)
[2021-03-18] MEDS ORDERED: LIDOCAINE HCL 400MG/20ML VIAL ONE (10:55)
[2021-03-18] MEDS ORDERED: IOHEXOL-350 50ML VIAL IV ONE (10:55)
[2021-03-19] MEDS ORDERED: CEPH500B PO (22:12)
== END 2021-03-18 12:40 | disposition home or self-care (01) ==
LOC: DAH 09:00
PROVIDERS: ATTEND Urology
DX: N13.1 Hydronephrosis with ureteral stricture, not elsewhere classified (principal); I10 Essential (primary) hypertension; E78.5 Hyperlipidemia, unspecified; Z86.73 Personal history of transient ischemic attack (TIA), and cerebral infarction without residual deficits; Z88.0 Allergy status to penicillin; Z72.89 Other problems related to lifestyle
CPT/HCPCS: 50430; 50431; C1769; J1644; J3490; Q9967

== ENCOUNTER 2021-03-19 18:50 | Emergency (ER) | payer MEDICARE ==
[~2021-03-19] VITALS: Ht 177.8 cm; Wt 83.9 kg
[2021-03-19 20:04] VITALS: BP 110/55
[2021-03-19 20:06] LABS: BASOPHILS % (AUTO) 0.2 % (0.0-5.0); EOSINOPHILS % (AUTO) 0.2 % (0.0-8.0); HEMATOCRIT 32.3 % (42-54); LYMPHOCYTES % (AUTO) 3.7 % (21.0-51.0); MEAN CORPUSCULAR HEMOGLOBIN 29.8 pg (27.0-33.0); MEAN CORPUSCULAR HGB CONC 32.8 g/dL (32.0-36.0); MEAN CORPUSCULAR VOLUME 90.7 fL (79-99); MONOCYTES % (AUTO) 10.1 % (3.0-13.0); NEUTROPHILS % (AUTO) 85.4 % (40.0-77.0); PLATELET COUNT (AUTO) 164 K/uL (130-400); RED BLOOD CELL COUNT(AUTO) 3.56 MIL/uL (4.50-6.20); RED CELL DISTRIBUTION WIDTH 14.8 % (11.0-15.5)
[2021-03-19 20:17] LABS: POTASSIUM 4.2 mmol/L (3.5-5.1)
[2021-03-19 20:22] LABS: ALBUMIN 3.1 g/dL (3.5-5.0); BILIRUBIN,TOTAL 1.3 mg/dL (0.2-1.0); CRP QUANTITATIVE 96.8 mg/L (0.00-9.0); TOTAL PROTEIN, SERUM 5.8 g/dL (6.0-8.3)
[2021-03-19 20:35] LABS: B-TYPE NATRIURETIC PEPTIDE 593 pg/mL (0-100)
[2021-03-19 20:53] LABS: APPEARANCE,URINE Turbid (CLEAR); BILIRUBIN,URINE Small (NEGATIVE); COLOR,URINE Orange (YELLOW); GLUCOSE, URINE (UA) Negative (NEGATIVE); KETONES,URINE Trace mg/dL (NEGATIVE); LEUKOCYTE ESTERASE ,URINE Large (NEGATIVE); NITRATE,URINE Negative (NEGATIVE); OCCULT BLOOD,URINE Large (NEGATIVE); PH,URINE 5.5 (5.0-8.0); PROTEIN,URINE 300 mg/dL (NEGATIVE)
[2021-03-19 21:03] LABS: BACTERIA,URINE Moderate /HPF (None Seen); MUCUS,URINE Few LPF (None Seen); RBC,URINE 51-100 /HPF (0-1); SQUAMOUS EPITHELIAL CELL,UR Rare /HPF (0-2)
[2021-03-19] MEDS ORDERED: CEFTRIAXONE 1G VIAL IVP ONE (21:30)
[2021-03-19] MEDS ORDERED: CEPH500B PO (22:12)
[2021-03-19 22:18] VITALS: BP 111/48
== END 2021-03-19 23:45 | disposition home or self-care (01) ==
LOC: EDH 18:50
DX: M62.81 Muscle weakness (generalized) (principal); N39.0 Urinary tract infection, site not specified; Z85.46 Personal history of malignant neoplasm of prostate; I25.10 Atherosclerotic heart disease of native coronary artery without angina pectoris; Z98.890 Other specified postprocedural states; Z79.899 Other long term (current) drug therapy
CPT/HCPCS: 36415; 70450; 71045; 80053; 81001; 83880; 84484 ×2; 85025; 86140; 87077; 87088; 87186; 87804 ×2; 93005 ×2; 96374; 99285; J0696

== ENCOUNTER 2021-05-15 14:39 | Inpatient (IN) | payer MEDICARE ==
[~2021-05-15] VITALS: Ht 177.8 cm; Wt 88.5 kg
[~2021-05-15 14:39] MED LIST changes: +CEPH500B PO
[2021-05-15 15:46] LABS: BASOPHILS % (AUTO) 0.5 % (0.0-5.0); EOSINOPHILS % (AUTO) 5.1 % (0.0-8.0); LYMPHOCYTES % (AUTO) 10.9 % (21.0-51.0); MEAN CORPUSCULAR HGB CONC 30.4 g/dL (32.0-36.0); MEAN CORPUSCULAR VOLUME 95.4 fL (79-99); NEUTROPHILS % (AUTO) 74.2 % (40.0-77.0); PLATELET COUNT (AUTO) 263 K/uL (130-400); RED BLOOD CELL COUNT(AUTO) 2.17 MIL/uL (4.50-6.20); RED CELL DISTRIBUTION WIDTH 15.6 % (11.0-15.5); WHITE BLOOD COUNT (AUTO) 6.3 K/uL (4.8-10.8)
[2021-05-15 15:48] LABS: HEMATOCRIT 20.7 % (42-54)
[2021-05-15 15:53] LABS: APPEARANCE,URINE CLOUDY (CLEAR); BILIRUBIN,URINE MODERATE (NEGATIVE); COLOR,URINE RED (YELLOW); GLUCOSE, URINE (UA) 100 mg/dL (NEGATIVE); KETONES,URINE 5 mg/dL (NEGATIVE); LEUKOCYTE ESTERASE ,URINE LARGE (NEGATIVE); NITRATE,URINE POSITIVE (NEGATIVE); OCCULT BLOOD,URINE LARGE (NEGATIVE); PH,URINE 7.5 (5.0-8.0); PROTEIN,URINE >=300 mg/dL (NEGATIVE)
[2021-05-15 16:06] LABS: CREATININE 1.4 mg/dL (0.5-1.5); POTASSIUM 4.7 mmol/L (3.5-5.1)
[2021-05-15] MEDS ORDERED: SACU1TAB PO (16:08)
[2021-05-15 16:11] LABS: ALBUMIN 3.1 g/dL (3.5-5.0); BILIRUBIN,TOTAL 0.2 mg/dL (0.2-1.0); TOTAL PROTEIN, SERUM 5.8 g/dL (6.0-8.3)
[2021-05-15 16:14] LABS: BACTERIA,URINE Moderate /HPF (None Seen); MUCUS,URINE Few LPF (None Seen); RBC,URINE >100 /HPF (0-1); SQUAMOUS EPITHELIAL CELL,UR 0-2 /HPF (0-2)
[2021-05-15 18:29] LABS: RETICULOCYTE % (AUTO) 5.11 % (0.42-2.23)
[2021-05-15] MEDS ORDERED: ONDANSETRON 4MG INJ IV PRN (18:30)
[2021-05-15] MEDS ORDERED: ACETAMINOPHEN 325 MG TAB PO PRN ×2 (18:30)
[2021-05-15] MEDS ORDERED: 0.9%NACL 1000ML 1,000 ML IV SCH (18:30)
[2021-05-15] MEDS ORDERED: MORPHINE 4 MG SYG IV PRN (18:30)
[2021-05-15] MEDS: 0.9%NACL 1000ML 1,000 ML IV SCH (18:32)
[2021-05-15] MEDS: MEROPENEM 500 MG VIAL IV SCH (18:43)
[2021-05-15 19:16] LABS: % IRON SATURATION 5.5 % (30-44)
[2021-05-15] MEDS ORDERED: FUROSEMIDE 20MG VIAL IV ONE (20:30)
[2021-05-15] MEDS: CARVEDILOL 3.125 MG TABLET PO SCH (21:00)
[2021-05-15] MEDS: CALCIUM CARB 500MG PO SCH (21:03)
[2021-05-15] MEDS: ATORVASTATIN 40 MG TABLET PO SCH (21:03)
[2021-05-15] MEDS: ASCORBIC ACID 500 MG TAB PO SCH (21:03)
[2021-05-15] MEDS: FAMOTIDINE 20MG VIAL IV SCH (21:04)
[2021-05-15] MEDS ORDERED: NOREPINEPHRINE 4MG/NS 250ML 250 ML IV ONE (21:57)
[2021-05-15] MEDS: NOREPINEPHRINE 4MG/NS 250ML 250 ML IV SCH (22:06)
[2021-05-16] VITALS (43 sets, daily range): BP systolic 79–123; BP diastolic 35–76
[2021-05-16] MEDS: MEROPENEM 500 MG VIAL IV SCH ×3 (02:20→17:57)
[2021-05-16 05:11] LABS: HEMATOCRIT 27.7 % (42-54)
[2021-05-16] MEDS ORDERED: KETAMINE 50MG/ML SYRINGE 50 MG/ML DISP.SYRIN IV ONE (07:24)
[2021-05-16] MEDS ORDERED: IOHEXOL-350 50ML VIAL IV ONE (07:58)
[2021-05-16] MEDS ORDERED: MIDAZOLAM HCL 1 MG/ML 2ML VIAL ONE (08:17)
[2021-05-16] MEDS ORDERED: PROPOFOL 10 MG/ML 20ML VIAL IV ONE (08:18)
[2021-05-16] MEDS ORDERED: GLYCOPYRROLATE 1 MG/5 ML SYRINGE ONE (08:18)
[2021-05-16] MEDS ORDERED: NOREPINEPHRINE BITARTRATE 1 MG/1 ML ML IV ONE (08:22)
[2021-05-16] MEDS ORDERED: ROCURONIUM 10MG/1ML SYR 10 MG/ML ML ONE (08:34)
[2021-05-16] MEDS ORDERED: ALBUMIN (HUMAN) 5% 250 ML IV ONE (08:39)
[2021-05-16] MEDS: CARVEDILOL 3.125 MG TABLET PO SCH ×2 (09:00→21:00)
[2021-05-16] MEDS: CALCIUM CARB 500MG PO SCH ×2 (09:00→20:59)
[2021-05-16] MEDS: (Cholecalciferol (Vitamin D3) (Vitamin D3) 50 MCG) PO SCH (09:00)
[2021-05-16] MEDS ORDERED: NEOSTIGMINE 5MG/5ML SYR IV ONE (09:02)
[2021-05-16] MEDS ORDERED: ONDANSETRON 4MG INJ ONE (09:03)
[2021-05-16] MEDS: 0.9%NACL 1000ML 1,000 ML IV SCH (09:41)
[2021-05-16 09:52] LABS: HEMATOCRIT 26.1 % (42-54)
[2021-05-16] MEDS: ASCORBIC ACID 500 MG TAB PO SCH ×2 (10:42→20:59)
[2021-05-16] MEDS: FOLIC ACID 1 MG TABLET PO SCH (10:42)
[2021-05-16 14:17] LABS: HEMATOCRIT 29.5 % (42-54)
[2021-05-16] MEDS ORDERED: BICA50TA7 PO (18:08)
[2021-05-16 20:57] LABS: HEMATOCRIT 31.5 % (42-54)
[2021-05-16] MEDS: FAMOTIDINE 20MG VIAL IV SCH (20:59)
[2021-05-16] MEDS: MORPHINE 2 MG SYG IV PRN (20:59)
[2021-05-16] MEDS: ATORVASTATIN 40 MG TABLET PO SCH (20:59)
[2021-05-16] MEDS: NOREPINEPHRINE 4MG/NS 250ML 250 ML IV SCH (21:11)
[2021-05-17] VITALS (63 sets, daily range): BP systolic 88–144; BP diastolic 37–108
[2021-05-17] MEDS: MEROPENEM 500 MG VIAL IV SCH ×3 (03:30→19:19)
[2021-05-17 06:30] LABS: BASOPHILS % (AUTO) 0.3 % (0.0-5.0); HEMATOCRIT 29.6 % (42-54); LYMPHOCYTES % (AUTO) 7.5 % (21.0-51.0); MEAN CORPUSCULAR HEMOGLOBIN 28.9 pg (27.0-33.0); MEAN CORPUSCULAR HGB CONC 31.1 g/dL (32.0-36.0); MEAN CORPUSCULAR VOLUME 93.1 fL (79-99); MONOCYTES % (AUTO) 9.3 % (3.0-13.0); NEUTROPHILS % (AUTO) 79.6 % (40.0-77.0); PLATELET COUNT (AUTO) 302 K/uL (130-400); RED BLOOD CELL COUNT(AUTO) 3.18 MIL/uL (4.50-6.20); RED CELL DISTRIBUTION WIDTH 15.5 % (11.0-15.5); WHITE BLOOD COUNT (AUTO) 9.3 K/uL (4.8-10.8)
[2021-05-17 06:46] LABS: CREATININE 1.1 mg/dL (0.5-1.5); MAGNESIUM 2.4 mg/dL (1.80-2.40); POTASSIUM 4.2 mmol/L (3.5-5.1)
[2021-05-17] MEDS ORDERED: POLYETHYLENE GLYCOL 3350 17 GM POWD.PACK ONE (08:37)
[2021-05-17] MEDS: CARVEDILOL 3.125 MG TABLET PO SCH ×2 (08:54→21:00)
[2021-05-17] MEDS: (Cholecalciferol (Vitamin D3) (Vitamin D3) 50 MCG) PO SCH (08:55)
[2021-05-17] MEDS: ASCORBIC ACID 500 MG TAB PO SCH ×2 (08:55→20:40)
[2021-05-17] MEDS: CALCIUM CARB 500MG PO SCH ×2 (08:55→20:31)
[2021-05-17] MEDS: FOLIC ACID 1 MG TABLET PO SCH (08:55)
[2021-05-17] MEDS: POLYETHYLENE GLYCOL 3350 17 GM POWD.PACK PO SCH ×2 (09:00→20:31)
[2021-05-17 09:50] LABS: HEMATOCRIT 25.9 % (42-54)
[2021-05-17] MEDS: NOREPINEPHRINE 4MG/NS 250ML 250 ML IV SCH (12:05)
[2021-05-17 13:49] LABS: HEMATOCRIT 27.1 % (42-54)
[2021-05-17] MEDS: ATORVASTATIN 40 MG TABLET PO SCH (20:31)
[2021-05-17] MEDS: FAMOTIDINE 20MG VIAL IV SCH (20:32)
[2021-05-17] MEDS: MORPHINE 2 MG SYG IV PRN (20:32)
[2021-05-18] VITALS (12 sets, daily range): BP systolic 95–119; BP diastolic 46–68
[2021-05-18] MEDS: MEROPENEM 500 MG VIAL IV SCH ×3 (02:30→18:30)
[2021-05-18 03:37] LABS: BASOPHILS % (AUTO) 0.3 % (0.0-5.0); EOSINOPHILS % (AUTO) 4.4 % (0.0-8.0); HEMATOCRIT 24.4 % (42-54); LYMPHOCYTES % (AUTO) 8.3 % (21.0-51.0); MEAN CORPUSCULAR HEMOGLOBIN 28.6 pg (27.0-33.0); MEAN CORPUSCULAR HGB CONC 31.6 g/dL (32.0-36.0); MEAN CORPUSCULAR VOLUME 90.7 fL (79-99); MONOCYTES % (AUTO) 9.1 % (3.0-13.0); NEUTROPHILS % (AUTO) 77.5 % (40.0-77.0); PLATELET COUNT (AUTO) 217 K/uL (130-400); RED BLOOD CELL COUNT(AUTO) 2.69 MIL/uL (4.50-6.20); RED CELL DISTRIBUTION WIDTH 15.1 % (11.0-15.5); WHITE BLOOD COUNT (AUTO) 7.3 K/uL (4.8-10.8)
[2021-05-18 03:58] LABS: CREATININE 1.1 mg/dL (0.5-1.5); POTASSIUM 3.9 mmol/L (3.5-5.1)
[2021-05-18] MEDS: ASCORBIC ACID 500 MG TAB PO SCH ×2 (08:40→21:59)
[2021-05-18] MEDS: CARVEDILOL 3.125 MG TABLET PO SCH ×2 (08:46→21:59)
[2021-05-18] MEDS: (Cholecalciferol (Vitamin D3) (Vitamin D3) 50 MCG) PO SCH (08:47)
[2021-05-18] MEDS: BICALUTAMIDE 50 MG PO SCH (08:47)
[2021-05-18] MEDS: FOLIC ACID 1 MG TABLET PO SCH (08:47)
[2021-05-18] MEDS: CALCIUM CARB 500MG PO SCH ×2 (08:47→21:59)
[2021-05-18] MEDS ORDERED: LACTULOSE 20 GM/30 ML UDCUP PO PRN (10:00)
[2021-05-18] MEDS: LACTULOSE 20 GM/30 ML UDCUP PO PRN (11:57)
[2021-05-18] MEDS: IRON SUCROSE COMPLEX 100 MG in 0.9%NACL 50ML 50 ML IV SCH (15:18)
[2021-05-18 15:35] LABS: HEMATOCRIT 26.4 % (42-54)
[2021-05-18] MEDS ORDERED: FLUCONAZOLE 100 MG TAB PO ONE (18:00)
[2021-05-18] MEDS: FAMOTIDINE 20MG VIAL IV SCH (21:59)
[2021-05-18] MEDS: ATORVASTATIN 40 MG TABLET PO SCH (21:59)
[2021-05-19] VITALS (14 sets, daily range): BP systolic 91–126; BP diastolic 46–75
[2021-05-19] MEDS: MEROPENEM 500 MG VIAL IV SCH (04:15)
[2021-05-19 06:26] LABS: HEMATOCRIT 25.5 % (42-54)
[2021-05-19] MEDS: (Cholecalciferol (Vitamin D3) (Vitamin D3) 50 MCG) PO SCH (08:39)
[2021-05-19] MEDS: BICALUTAMIDE 50 MG PO SCH (08:39)
[2021-05-19 08:57] LABS: CREATININE 1.1 mg/dL (0.5-1.5); MAGNESIUM 2.1 mg/dL (1.80-2.40); POTASSIUM 4.3 mmol/L (3.5-5.1)
[2021-05-19] MEDS: IRON SUCROSE COMPLEX 100 MG in 0.9%NACL 50ML 50 ML IV SCH (09:34)
[2021-05-19] MEDS: CALCIUM CARB 500MG PO SCH ×2 (09:34→20:45)
[2021-05-19] MEDS: FOLIC ACID 1 MG TABLET PO SCH (09:34)
[2021-05-19] MEDS: ASCORBIC ACID 500 MG TAB PO SCH ×2 (09:34→20:45)
[2021-05-19] MEDS: CARVEDILOL 3.125 MG TABLET PO SCH ×2 (09:34→20:46)
[2021-05-19] MEDS: POLYETHYLENE GLYCOL 3350 17 GM POWD.PACK PO SCH (09:35)
[2021-05-19] MEDS ORDERED: ZOLPIDEM TARTRATE 5 MG TAB PO PRN (20:00)
[2021-05-19] MEDS: ATORVASTATIN 40 MG TABLET PO SCH (20:46)
[2021-05-19] MEDS: FAMOTIDINE 20MG VIAL IV SCH (20:46)
[2021-05-19] MEDS: SACUBITRIL/VALSARTAN 1 EACH TABLET PO SCH (20:47)
[2021-05-20] VITALS: BP 85/51
[2021-05-20 04:00] VITALS: BP 92/55
[2021-05-20 08:00] VITALS: BP 111/54
[2021-05-20 08:55] LABS: BASOPHILS % (AUTO) 0.4 % (0.0-5.0); EOSINOPHILS % (AUTO) 6.3 % (0.0-8.0); LYMPHOCYTES % (AUTO) 8.3 % (21.0-51.0); MEAN CORPUSCULAR HEMOGLOBIN 28.6 pg (27.0-33.0); MEAN CORPUSCULAR HGB CONC 31.1 g/dL (32.0-36.0); MEAN CORPUSCULAR VOLUME 91.8 fL (79-99); NEUTROPHILS % (AUTO) 75.4 % (40.0-77.0); PLATELET COUNT (AUTO) 262 K/uL (130-400); RED BLOOD CELL COUNT(AUTO) 2.94 MIL/uL (4.50-6.20); RED CELL DISTRIBUTION WIDTH 14.7 % (11.0-15.5)
[2021-05-20] MEDS: BICALUTAMIDE 50 MG PO SCH (09:00)
[2021-05-20] MEDS: (Cholecalciferol (Vitamin D3) (Vitamin D3) 50 MCG) PO SCH (09:00)
[2021-05-20 09:13] LABS: CREATININE 0.9 mg/dL (0.5-1.5); POTASSIUM 4.4 mmol/L (3.5-5.1)
[2021-05-20] MEDS: CALCIUM CARB 500MG PO SCH (09:15)
[2021-05-20] MEDS: CARVEDILOL 3.125 MG TABLET PO SCH (09:15)
[2021-05-20] MEDS: SACUBITRIL/VALSARTAN 1 EACH TABLET PO SCH (09:15)
[2021-05-20] MEDS: FOLIC ACID 1 MG TABLET PO SCH (09:15)
[2021-05-20] MEDS: ASCORBIC ACID 500 MG TAB PO SCH (09:16)
[2021-05-20] MEDS: POLYETHYLENE GLYCOL 3350 17 GM POWD.PACK PO SCH (09:16)
[2021-05-20] MEDS: LACTULOSE 20 GM/30 ML UDCUP PO PRN (09:16)
[2021-05-20 12:00] VITALS: BP 92/57
[2021-05-20 16:00] VITALS: BP 100/57
== END 2021-05-20 17:07 | disposition home or self-care (01) | DRG 659 ==
LOC: EDH 14:39 → EDHIP 18:08 → 2CH 05-16 09:23 → 4DH 05-19 16:13
PROVIDERS: ADMIT Internal Medicine; ATTEND Internal Medicine
PROC: 0TP98DZ Removal of Intraluminal Device from Ureter, Via Natural or Artificial Opening Endoscopic (ICD-10-PCS; 2021-05-16)
PROC: 0T5C8ZZ Destruction of Bladder Neck, Via Natural or Artificial Opening Endoscopic (ICD-10-PCS; principal; 2021-05-16 08:44)
PROC: 0T768DZ Dilation of Right Ureter with Intraluminal Device, Via Natural or Artificial Opening Endoscopic (ICD-10-PCS; 2021-05-16 08:44)
PROC: 30233N1 Transfusion of Nonautologous Red Blood Cells into Peripheral Vein, Percutaneous Approach (ICD-10-PCS; 2021-05-16 08:44)
PROC: 0TCB8ZZ Extirpation of Matter from Bladder, Via Natural or Artificial Opening Endoscopic (ICD-10-PCS; 2021-05-16 08:44)
DX: N30.41 Irradiation cystitis with hematuria (principal); R57.8 Other shock; D62 Acute posthemorrhagic anemia; I50.20 Unspecified systolic (congestive) heart failure; N13.30 Unspecified hydronephrosis; I25.5 Ischemic cardiomyopathy; Z20.822 Contact with and (suspected) exposure to COVID-19; E11.51 Type 2 diabetes mellitus with diabetic peripheral angiopathy without gangrene; E78.5 Hyperlipidemia, unspecified; I11.0 Hypertensive heart disease with heart failure; I25.10 Atherosclerotic heart disease of native coronary artery without angina pectoris; I34.0 Nonrheumatic mitral (valve) insufficiency; J44.9 Chronic obstructive pulmonary disease, unspecified; N19 Unspecified kidney failure; N40.0 Benign prostatic hyperplasia without lower urinary tract symptoms; Y84.2 Radiological procedure and radiotherapy as the cause of abnormal reaction of the patient, or of later complication, without mention of misadventure at the time of the procedure; Y92.89 Other specified places as the place of occurrence of the external cause; I25.2 Old myocardial infarction; Z79.899 Other long term (current) drug therapy; Z95.1 Presence of aortocoronary bypass graft; Z92.3 Personal history of irradiation; Z86.73 Personal history of transient ischemic attack (TIA), and cerebral infarction without residual deficits; Z85.46 Personal history of malignant neoplasm of prostate; Z80.42 Family history of malignant neoplasm of prostate; Z83.3 Family history of diabetes mellitus; Z82.5 Family history of asthma and other chronic lower respiratory diseases; Z82.49 Family history of ischemic heart disease and other diseases of the circulatory system; Z82.3 Family history of stroke; Z82.0 Family history of epilepsy and other diseases of the nervous system
CPT/HCPCS: 36415; 71045; 74018; 76770; 80048; 80053; 81001; 82550; 82948; 83540; 83550; 83690; 83735; 84145; 84443; 84484; 85014; 85018; 85025; 85045; 86850; 86900; 86901; 86923; 87040; 87088; 87635; 93005; 97039; A4354; C1758; C1769; C2617; G0378; J1756; J1940; J2185; J2250; J2405; J2704; J2710; J3490; J7120; P9016; P9045; Q9967

== ENCOUNTER 2021-08-27 07:08 | Day surgery (SDC) | payer MEDICARE ==
[2021-08-21 13:06] LABS: BASOPHILS % (AUTO) 0.5 % (0.0-5.0); EOSINOPHILS % (AUTO) 3.4 % (0.0-8.0); HEMATOCRIT 41.4 % (42-54); LYMPHOCYTES % (AUTO) 8.4 % (21.0-51.0); MEAN CORPUSCULAR HEMOGLOBIN 27.4 pg (27.0-33.0); MEAN CORPUSCULAR HGB CONC 30.7 g/dL (32.0-36.0); MEAN CORPUSCULAR VOLUME 89.4 fL (79-99); MONOCYTES % (AUTO) 8.6 % (3.0-13.0); NEUTROPHILS % (AUTO) 78.8 % (40.0-77.0); PLATELET COUNT (AUTO) 233 K/uL (130-400); RED BLOOD CELL COUNT(AUTO) 4.63 MIL/uL (4.50-6.20); RED CELL DISTRIBUTION WIDTH 15.2 % (11.0-15.5); WHITE BLOOD COUNT (AUTO) 7.4 K/uL (4.8-10.8)
[2021-08-21 13:07] LABS: APPEARANCE,URINE Turbid (CLEAR); BILIRUBIN,URINE Negative (NEGATIVE); COLOR,URINE Yellow (YELLOW); GLUCOSE, URINE (UA) Negative (NEGATIVE); KETONES,URINE Negative (NEGATIVE); LEUKOCYTE ESTERASE ,URINE Large (NEGATIVE); NITRATE,URINE Negative (NEGATIVE); OCCULT BLOOD,URINE Large (NEGATIVE); PH,URINE 5.5 (5.0-8.0); PROTEIN,URINE POS 2+ mg/dL (NEGATIVE)
[2021-08-21 13:19] LABS: POTASSIUM 5.4 mmol/L (3.5-5.1)
[2021-08-21 13:40] LABS: BACTERIA,URINE Few /HPF (None Seen)
[2021-08-21 13:42] LABS: SQUAMOUS EPITHELIAL CELL,UR None Seen /HPF (0-2)
[2021-08-25 12:00] VITALS: BP 97/65
[~2021-08-27] VITALS: Ht 177.8 cm; Wt 88.9 kg
[2021-08-27] VITALS (15 sets, daily range): BP systolic 85–109; BP diastolic 38–78
[~2021-08-27 07:08] MED LIST changes: +ASCO100031 PO; -CEPH500B PO; -CHOL2000 PO; +CRANBERRY PO; +IRON PO; -LEVO500T89 PO; +LEVOFLOXACIN 500 MG/D5W 100 ML 100 ML IV SCH; +MELA10CA2 PO; -MELA3TAB41 PO; +SACU1TAB PO; +THIAMINE PO; +VITAMIN D PO
[2021-08-27] MEDS ORDERED: LACTATED RINGERS 1000ML 1,000 ML IV ONE (07:35)
[2021-08-27] MEDS ORDERED: IOHEXOL-350 50ML VIAL IV ONE (07:47)
[2021-08-27] MEDS ORDERED: LIDOCAINE PF 100MG/5ML (2%) SYRINGE 5ML ONE (09:48)
[2021-08-27] MEDS ORDERED: PROPOFOL 10 MG/ML 20ML VIAL IV ONE (09:48)
[2021-08-27] MEDS ORDERED: KETAMINE HCL 100 MG/ML 5ML VIAL IJ ONE (09:50)
[2021-08-27] MEDS ORDERED: GLYCOPYRROLATE 1 MG/5 ML SYRINGE ONE (09:52)
[2021-08-27] MEDS ORDERED: MIDAZOLAM HCL 1 MG/ML 2ML VIAL ONE (09:53)
[2021-08-27] MEDS ORDERED: PHENYLEPHRINE HCL 10 MG/ML 1ML VIAL IV ONE (10:01)
[2021-08-27] MEDS ORDERED: FENTANYL CITRATE PF 50 MCG/1 ML 2ML VIAL ONE (10:18)
[2021-08-27] MEDS ORDERED: ONDANSETRON 4MG INJ ONE (10:33)
== END 2021-08-27 12:20 | disposition home or self-care (01) ==
LOC: DAH 07:08
PROVIDERS: ATTEND Urology
DX: N13.5 Crossing vessel and stricture of ureter without hydronephrosis (principal); Z20.822 Contact with and (suspected) exposure to COVID-19; R31.0 Gross hematuria; I10 Essential (primary) hypertension; I25.2 Old myocardial infarction; E78.5 Hyperlipidemia, unspecified; Z86.73 Personal history of transient ischemic attack (TIA), and cerebral infarction without residual deficits; Z98.890 Other specified postprocedural states; Z85.46 Personal history of malignant neoplasm of prostate; Z92.3 Personal history of irradiation; Z95.1 Presence of aortocoronary bypass graft
CPT/HCPCS: 36415; 52332; 71045; 74018; 80048; 81001; 85025; 87088; 87426; 93005; A4215; A4221; A4222; A4223; A4358; A4663; A6260; C1758; C1769; C2617; J1956; J2001; J2250; J2370; J2405; J2704; J3010; J3490 ×2; J7120 ×2; Q9967

== ENCOUNTER 2021-12-17 08:35 | Day surgery (SDC) | payer MEDICARE ==
[2021-12-11 15:17] LABS: HEMATOCRIT 43.6 % (42-54); MEAN CORPUSCULAR HEMOGLOBIN 29.2 pg (27.0-33.0); MEAN CORPUSCULAR HGB CONC 31.7 g/dL (32.0-36.0); MEAN CORPUSCULAR VOLUME 92.4 fL (79-99); PLATELET COUNT (AUTO) 249 K/uL (130-400); RED BLOOD CELL COUNT(AUTO) 4.72 MIL/uL (4.50-6.20); RED CELL DISTRIBUTION WIDTH 15.4 % (11.0-15.5); WHITE BLOOD COUNT (AUTO) 8.9 K/uL (4.8-10.8)
[2021-12-11 15:28] LABS: CREATININE 1.1 mg/dL (0.5-1.5); POTASSIUM 4.2 mmol/L (3.5-5.1)
[2021-12-11 15:31] LABS: INR 1.05 (0.85-1.15); PROTHROMBIN TIME 11.4 SEC (9.6-11.6)
[2021-12-11 15:43] LABS: BASOPHILS % (MANUAL) 1 % (0-2); LYMPHOCYTES % (MANUAL) 10 % (22-44); MAN.DIFF COMMENT-IMPRESSION MANUAL DIFFERENTIAL; MONOCYTES % (MANUAL) 3 % (2-9); SEGMENTED NEUTROPHILS % 86 % (40-70)
[2021-12-11 15:44] LABS: PLATELET MORPHOLOGY COMMENT ADEQUATE
[2021-12-16 11:30] VITALS: BP 111/69
[2021-12-17] VITALS (19 sets, daily range): BP systolic 72–114; BP diastolic 37–71
[~2021-12-17] VITALS: Ht 177.8 cm; Wt 83.2 kg
[~2021-12-17 08:35] MED LIST changes: -ASCO500T20 PO; -ATOR40TA69 PO; -CRANBERRY PO; +FURO40TA5 PO; -IRON PO; +LEVO500T90 PO; -LEVOFLOXACIN 500 MG/D5W 100 ML 100 ML IV SCH; +ROSU40TA21 PO
[2021-12-17] MEDS ORDERED: IOHEXOL-350 50ML VIAL IV ONE (09:51)
[2021-12-17 09:56] LABS: APPEARANCE,URINE TURBID (CLEAR); BILIRUBIN,URINE NEGATIVE (NEGATIVE); COLOR,URINE YELLOW (YELLOW); GLUCOSE, URINE (UA) NEGATIVE (NEGATIVE); KETONES,URINE NEGATIVE (NEGATIVE); LEUKOCYTE ESTERASE ,URINE LARGE (NEGATIVE); NITRATE,URINE NEGATIVE (NEGATIVE); OCCULT BLOOD,URINE LARGE (NEGATIVE); PROTEIN,URINE 100 mg/dL (NEGATIVE); UROBILINOGEN,URINE 0.2 mg/dL (0.2-1.0)
[2021-12-17] MEDS ORDERED: LACTATED RINGERS 1000ML 1,000 ML IV ONE (10:00)
[2021-12-17 10:19] LABS: BACTERIA,URINE Few /HPF (None Seen); SQUAMOUS EPITHELIAL CELL,UR Rare /HPF (0-2); WBC,URINE TNTC /HPF (0-1)
[2021-12-17] MEDS ORDERED: GENTAMICIN 80 MG/NS 100 ML PB 100 ML IV ONE (10:59)
[2021-12-17] MEDS ORDERED: LEVOFLOXACIN 500 MG/D5W 100 ML 100 ML ONE (10:59)
[2021-12-17] MEDS ORDERED: ONDANSETRON 4MG INJ ONE (13:41)
[2021-12-17] MEDS ORDERED: DEXAMETHASONE SOD PHOSPHATE 10MG/ML 1ML VIAL ONE (13:41)
[2021-12-17] MEDS ORDERED: LIDOCAINE PF 100MG/5ML (2%) SYRINGE 5ML ONE (13:41)
[2021-12-17] MEDS ORDERED: MIDAZOLAM HCL 1 MG/ML 2ML VIAL ONE (13:41)
[2021-12-17] MEDS ORDERED: GLYCOPYRROLATE 1 MG/5 ML SYRINGE ONE (13:42)
[2021-12-17] MEDS ORDERED: NEOSTIGMINE 5MG/5ML SYR IV ONE (13:42)
[2021-12-17] MEDS ORDERED: ROCURONIUM 10MG/1ML SYR 10 MG/ML ML ONE (13:42)
[2021-12-17] MEDS ORDERED: PROPOFOL 10 MG/ML 20ML VIAL IV ONE (13:42)
[2021-12-17] MEDS ORDERED: FENTANYL CITRATE PF 50 MCG/1 ML 2ML VIAL ONE (13:43)
[2021-12-17] MEDS ORDERED: EPHEDRINE SULFATE 50 MG/ML AMPULE ONE (13:47)
[2021-12-17] MEDS ORDERED: SUGAMMADEX SODIUM 200 MG/2 ML VIAL IV ONE (14:07)
[2021-12-17] MEDS ORDERED: DiphenhydrAMINE HCL 50 MG/ML VIAL ONE (14:25)
== END 2021-12-17 16:25 | disposition home or self-care (01) ==
LOC: DAH 08:35
PROVIDERS: ATTEND Urology
DX: R31.0 Gross hematuria (principal); I25.10 Atherosclerotic heart disease of native coronary artery without angina pectoris; Z95.1 Presence of aortocoronary bypass graft; I10 Essential (primary) hypertension; Z86.73 Personal history of transient ischemic attack (TIA), and cerebral infarction without residual deficits; N13.5 Crossing vessel and stricture of ureter without hydronephrosis; I45.10 Unspecified right bundle-branch block; Z79.899 Other long term (current) drug therapy; Z20.822 Contact with and (suspected) exposure to COVID-19; Z85.46 Personal history of malignant neoplasm of prostate
CPT/HCPCS: 36415 ×2; 52332; 71045; 74018; 80048; 81001; 85025; 85610; 85730; 87088 ×2; 87635; 93005; A4358; A6260; C1758; C1769 ×2; C2617; C9803; J1100; J1200; J1580; J1956; J2001; J2250; J2405; J2704; J2710; J3010; J3490 ×2; J7120 ×2; Q9967

== ENCOUNTER → 2022-05-04 | Outpatient (CLI) | payer MEDICARE ==
[~2022-05-04] MED LIST changes: +LEVO-70 PO; -LEVO500T90 PO
== END | disposition home or self-care (01) ==
LOC: SHCH 12:53
PROVIDERS: ATTEND Internal Medicine Cardiovascular Disease
DX: I70.293 Other atherosclerosis of native arteries of extremities, bilateral legs (principal)
CPT/HCPCS: 93925

== ENCOUNTER 2022-05-13 06:09 | Day surgery (SDC) | payer MEDICARE ==
[2022-05-07 12:17] LABS: BASOPHILS % (AUTO) 0.4 % (0.0-5.0); EOSINOPHILS % (AUTO) 1.6 % (0.0-8.0); HEMATOCRIT 38.2 % (42-54); LYMPHOCYTES % (AUTO) 5.8 % (21.0-51.0); MEAN CORPUSCULAR HEMOGLOBIN 29.8 pg (27.0-33.0); MEAN CORPUSCULAR HGB CONC 31.9 g/dL (32.0-36.0); MEAN CORPUSCULAR VOLUME 93.4 fL (79-99); MONOCYTES % (AUTO) 7.9 % (3.0-13.0); PLATELET COUNT (AUTO) 213 K/uL (130-400); RED BLOOD CELL COUNT(AUTO) 4.09 MIL/uL (4.50-6.20); RED CELL DISTRIBUTION WIDTH 14.5 % (11.0-15.5); WHITE BLOOD COUNT (AUTO) 7.5 K/uL (4.8-10.8)
[2022-05-07 12:21] LABS: APPEARANCE,URINE TURBID (CLEAR); BILIRUBIN,URINE NEGATIVE (NEGATIVE); COLOR,URINE LIGHT-ORANGE (YELLOW); GLUCOSE, URINE (UA) NEGATIVE (NEGATIVE); KETONES,URINE NEGATIVE (NEGATIVE); LEUKOCYTE ESTERASE ,URINE 500 Leu/uL (NEGATIVE); NITRATE,URINE NEGATIVE (NEGATIVE); OCCULT BLOOD,URINE LARGE (NEGATIVE); PH,URINE 5.5 (5.0-8.0); PROTEIN,URINE 70 mg/dL (NEGATIVE); UROBILINOGEN,URINE 0.2 mg/dL (0.2-1.0)
[2022-05-07 12:34] LABS: BACTERIA,URINE FEW /HPF (None Seen); RBC,URINE 51-100 /HPF (0-1); WBC,URINE TNTC /HPF (0-1)
[2022-05-07 12:47] LABS: CREATININE 1.3 mg/dL (0.5-1.5); POTASSIUM 4.6 mmol/L (3.5-5.1)
[2022-05-12 10:27] VITALS: BP 86/59
[~2022-05-13] VITALS: Ht 177.8 cm; Wt 82.4 kg
[2022-05-13] VITALS (18 sets, daily range): BP systolic 76–103; BP diastolic 50–76
[~2022-05-13 06:09] MED LIST changes: +CALC-1038 PO; -CALC-1125 PO; -FOLI0.4T6 PO; +FURO20TA4 PO; -FURO40TA5 PO; +IRON18TA PO; +ISOVUE-300 100 ML VIAL IV ONE; -MELA10CA2 PO; +ROSU10TA28 PO; -ROSU40TA21 PO; -THIAMINE PO; -VITAMIN D PO
[2022-05-13] MEDS ORDERED: KETAMINE 50MG/ML SYRINGE 50 MG/ML DISP.SYRIN IV ONE (06:19)
[2022-05-13] MEDS ORDERED: LIDOCAINE HCL-MPF 2% 10ML AMP IJ ONE (06:20)
[2022-05-13] MEDS ORDERED: LACTATED RINGERS 1000ML 1,000 ML IV ONE (06:52)
[2022-05-13] MEDS ORDERED: IOHEXOL-350 75 ML VIAL IV ONE (08:03)
[2022-05-13] MEDS ORDERED: LIDOCAINE HCL MPF 1% 5ML VIAL ONE (08:11)
[2022-05-13] MEDS ORDERED: DEXAMETHASONE SOD PHOSPHATE 10MG/ML 1ML VIAL ONE (08:11)
[2022-05-13] MEDS ORDERED: FENTANYL CITRATE PF 50 MCG/1 ML 2ML VIAL ONE (08:12)
[2022-05-13] MEDS ORDERED: PROPOFOL 10 MG/ML 20ML VIAL IV ONE (08:12)
[2022-05-13] MEDS ORDERED: MIDAZOLAM HCL 1 MG/ML 2ML VIAL ONE (08:12)
[2022-05-13] MEDS ORDERED: ONDANSETRON 4MG INJ ONE (08:12)
[2022-05-13] MEDS ORDERED: EPHEDRINE SULFATE 50 MG/ML AMPULE ONE (09:04)
[2022-05-13] MEDS ORDERED: CEFAZOLIN SODIUM 1 GM VIAL ONE (09:14)
[2022-05-13] MEDS ORDERED: IOPAMIDOL IV ONE (09:18)
== END 2022-05-13 11:30 | disposition home or self-care (01) ==
LOC: DAH 06:09
PROVIDERS: ATTEND Urology
DX: N13.5 Crossing vessel and stricture of ureter without hydronephrosis (principal); N30.41 Irradiation cystitis with hematuria; I10 Essential (primary) hypertension; Z79.899 Other long term (current) drug therapy; Z86.73 Personal history of transient ischemic attack (TIA), and cerebral infarction without residual deficits; Z85.46 Personal history of malignant neoplasm of prostate; Z92.3 Personal history of irradiation; Z95.1 Presence of aortocoronary bypass graft; Z98.890 Other specified postprocedural states
CPT/HCPCS: 80048; 85025; 87088; 87426; 81001; 36415; 71045; 93005; 52332; 74018; A6260; J7120 ×2; C1758; C2617; J3010; J0690; J1100; J3490 ×4; J2250; J2704; J2405; Q9967; A4358; C1769; A4215 ×2; A4223; A4222; A4221; A4663; A4600

== ENCOUNTER → 2022-09-24 | Outpatient (CLI) | payer MEDICARE ==
[~2022-09-24] MED LIST changes: -ISOVUE-300 100 ML VIAL IV ONE
== END | disposition home or self-care (01) ==
LOC: SHCH 14:39
PROVIDERS: ATTEND Internal Medicine Cardiovascular Disease
DX: I42.9 Cardiomyopathy, unspecified (principal)
CPT/HCPCS: 93306